=== PATIENT | female | born 1975 | race Caucasian/White ===

== ENCOUNTER 2021-03-03 05:48 | Emergency (ER) | payer MEDICAID, SELFPAY ==
--- NOTE | ~2021-03-03 | CT_ITS ---
EXAMINATION: CT ABDOMEN AND PELVIS WITH CONTRAST CLINICAL INFORMATION: Pain. History of gastric fistula and gastric bypass COMPARISON: Previous CT of the abdomen and pelvis April 2019 TECHNIQUE: Multidetector volumetric images were obtained from the superior aspect of the liver through the pubic symphysis following administration 85 mL of Omnipaque 350 intravenous contrast. Sagittal and coronal reformatted images were obtained on the technologist's workstation. Oral contrast: Yes This CT examination was performed using dose optimization techniques as appropriate, variously including the following: *Automated exposure control *Adjustment of mA and/or kV according to patient size (this includes techniques or standardized protocols for targeted exams where dose is matched to indication/reason for exam; i.e. extremities or head) *Use of iterative reconstruction technique DLP: 934 mGy-cm FINDINGS: LUNG BASES: The visualized lung bases are unremarkable. LIVER, GALLBLADDER, AND BILIARY TREE: The liver is normal in size, shape, and attenuation. No focal hepatic lesion or biliary ductal dilatation is present. The gallbladder has been removed. PANCREAS: Unremarkable. SPLEEN: Unremarkable. ADRENAL GLANDS: Unremarkable. KIDNEYS AND URETERS: The kidneys are normal in size, shape, and attenuation. No hydronephrosis, hydroureter, or calculi seen. No perinephric stranding. BLADDER: Unremarkable. GASTROINTESTINAL TRACT: There are postsurgical changes from gastric bypass. No evidence of fluid collection, extraluminal air or fistula is seen. The small and large bowel are otherwise unremarkable. The appendix is unremarkable. ABDOMINAL WALL: There are multiple ventral hernias containing fat. There is an umbilical hernia containing fat. LYMPH NODES: Normal. VASCULAR: Unremarkable. PELVIC VISCERA: Unremarkable. OSSEOUS STRUCTURES: There are mild degenerative changes of the lower thoracic spine. CT/CT abdomen pelvis w con IMPRESSION: No acute findings. Postsurgical changes following gastric bypass. Umbilical and ventral hernias.
[2021-03-03 06:15] VITALS: BP 167/95; PULSE 84; RESP 20; TEMP 35.7; O2SAT 97; BMI 45.0
--- NOTE | 2021-03-03 08:16 | ECG_ITS ---
Test Reason : ABDOMINAL PAIN Blood Pressure : / mmHG Vent. Rate : 074 BPM Atrial Rate : 074 BPM P-R Int : 154 ms QRS Dur : 076 ms QT Int : 418 ms P-R-T Axes : 061 054 037 degrees QTc Int : 463 ms Normal sinus rhythm Normal ECG When compared with ECG of 18-APR-2019 21:54, QT has lengthened Referred By: Lauren Bay Electronically Signed By:Kevin Ramon
--- NOTE | 2021-03-03 08:34 | ED.ABDPAIN ---
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 Vomiting NBNB x1. +nausea. No diarrhea, urinary symptoms, fevers or chills. MD elicited complaint: abdominal pain Related Data Home Medications Medication Instructions Recorded Confirmed cholecalciferol (vitamin D3) 125 mcg PO DAILY 07/15/20 07/15/20 [Vitamin D3] cyanocobalamin (vitamin B-12) 5,000 mcg SUBLINGUAL DAILY 07/15/20 07/15/20 [Vitamin B-12] fluoxetine [Prozac] 20 mg PO DAILY 07/15/20 07/15/20 sucralfate [Carafate] 10 ml PO BID 07/15/20 07/15/20 Previous Rx's Medication Instructions Recorded omeprazole 40 mg capsule,delayed 40 mg PO DAILY 30 Days #30 cap 09/25/20 release ondansetron 4 mg PO Q6H PRN #10 tab 03/03/21 Allergies Allergy/AdvReac Type Severity Reaction Status Date / Time No Known Allergies Allergy Verified 03/03/21 06:15 [No Known Allergies*] Review of Systems Review of Systems Yes all other systems are reviewed and are negative Constitutional: Reports no additional constitutional complaints, Denies body ache(s), Denies chills, Denies fever(s), Denies headache(s) and Denies weakness Eyes: Reports no additional eye complaints and Denies change in vision Reports system reviewed and no additional complaints, except as documented, Denies dizziness, Denies headache(s), Denies nasal congestion, Denies nasal discharge and Denies neck pain Cardiovascular: Reports no additional cardiovascular complaints, Denies chest pain, Denies leg edema and Denies dyspnea Respiratory: Reports no additional respiratory complaints, Denies cough and Denies dyspnea Gastrointestinal: Reports no additional gastrointestinal complaints, Reports abdominal pain, Denies diarrhea, Reports nausea and Reports vomiting Genitourinary: Reports no additional female genitourinary complaints and Denies urinary incontinence Musculoskeletal: Reports no additional musculoskeletal complaints, Denies back pain, Denies arthralgias, Denies joint swelling, Denies neck pain, Denies numbness and Denies tingling Skin/Breast: Reports system reviewed and no additional complaints, except as docu and Denies rash Reports system reviewed and no additional complaints, except as documented, Denies Abnormal speech present, Denies dizziness, Denies headache(s), Denies numbness, Denies tingling and Denies weakness Physical Exam Vital Signs: Vital Signs: Last Vital Signs Temp 97.6 F 03/03/21 09:13 Pulse 72 03/03/21 09:13 Resp 17 03/03/21 09:13 BP 158/75 H 03/03/21 09:13 Pulse Ox 98 03/03/21 09:13 Body Mass Index 45.0 Const: General: cooperative, healthy appearing, comfortable and no acute distress Orientation/consciousness: patient oriented x3 Limitations: no limitations HENMT: Head: Yes normal to inspection Ears: hearing grossly normal bilaterally General nose exam: Normal external nose present Face and sinus: Yes normal facial exam Mouth: Normal oral and palatal mucosa present Throat: Yes posterior oropharynx normal Eyes: General: appearance normal, both eyes and all related structures Pupils: Equal, round and reactive pupils present Neck: Neck: Yes normal visual inspection Chest: Chest palpation & inspection: normal inspection of the chest Resp: Effort & Inspection: normal respiratory effort Auscultation: clear to auscultation bilaterally Cardio: Rate: regular rate Rhythm: regular rhythm Peripheral pulses: Peripheral pulses 2+ throughout GI: Inspection: Yes normal to inspection Palpation (GI): Soft to palpation and Tenderness to palpation present (GI) (MOD LUQ, left sided abdomen-+guarding) Auscultation: normal bowel sounds Back/Spine/Pelvis: Thoracic/Lumbar Spine: thoracic and lumbar spine normal to inspection Skin: General skin exam: no rashes or lesions noted Neuro: General: patient oriented x3, no focal motor deficits and normal sensation to monofilament Cranial nerves: Yes Equal, round and reactive pupils present Cognition (Neuro): normal cognition Speech: No Abnormal speech present Gait exam (Neuro): Normal gait present Motor exam (neuro): 5/5 motor strength present throughout Extrem: General: Yes normal to inspection, Yes no pedal edema and Yes no calf tenderness Course Course Course Narrative: 45 yo female here with left sided Ap with vomiting since last evening. ON exam mod tenderness in LUQ/left sided abdomen with guarding. Will need labs, UA. Place PIV and give antiemetic/analgesia, d/w with GI. 0950-Labs unremarkble. UA negative. Feeling improved after morphine/zofran. Will d/w with GI 1000-D/w with Dr Sims. Check CT A/P with PO contrast. If negative and patient feeling improved may f/u in office. 1150-CT show no acute finding. Patient feeling improved. Tolerating PO. Reviewed worrisome signs/symptoms with patient and when to return to ED. Comfortable with discharge home. MDM - Abdominal Pain Medical Records Attestation: I reviewed the patient's medical records. Lab Data Attestation: I reviewed the patient's lab results. Result diagrams: 03/03/21 08:36 03/03/21 08:36 Labs: Lab Results 03/03/21 03/03/21 03/03/21 Range/Units 08:36 08:36 08:36 WBC 6.8 (4.8-10.8) X10*3/uL RBC 3.84 L (4.20-5.50) X10*6/uL Hgb 12.8 (12.0-16.0) g/dl Hct 39.0 (37-47) % MCV 101.6 H (80-98) fL MCH 33.3 H (27.0-33.0) pg MCHC 32.8 (31.0-35.0) g/dl RDW 13.3 (11.0-16.0) % Plt Count 190 (160-400) X10*3/uL MPV 10.6 (9.4-12.3) fL Immature Gran % (Auto) 0.6 H (0.0-0.4) % Neut % (Auto) 69.0 (45-73) % Lymph % (Auto) 21.3 (20-40) % [place] % (Auto) 7.8 (2-11) % Eos % (Auto) 0.9 (0-4) % Baso % (Auto) 0.4 (0-2) % Lymph # (Auto) 1.5 (1.2-4.9) X10*3/uL [place] # (Auto) 0.5 (0.1-1.2) X10*3/uL Eos # (Auto) 0.1 (0.0-0.4) X10*3/uL Baso # (Auto) 0.0 (0.0-0.2) X10*3/uL Abs Immat Gran (auto) 0.04 H (0.00-0.03) X10*3/uL Absolute Neuts (auto) 4.7 (2.0-8.3) X10*3/uL Absolute Nucleated RBC 0.000 (0.0-0.012) X10*3/uL Nucleated RBC % (auto) 0.0 (0.0-0.2) /100WBC Sodium 139 (135-145) mmol/L Potassium 4.4 (3.3-5.1) mmol/L Chloride 108 (96-108) mmol/L Carbon Dioxide 23 (22-29) mmol/L Anion Gap 12 (12-20) BUN 17 H (9-16) mg/dL Creatinine 0.70 (0.5-1.4) mg/dL Estim Creat Clear Calc 122.1 Estimated GFR > 60 Random Glucose 98 (60-115) mg/dL Calcium 8.9 (8.4-10.2) mg/dL Magnesium 2.0 (1.6-2.6) mg/dL Total Bilirubin 0.5 (0.0-1.0) mg/dL Direct Bilirubin 0.2 (0.0-0.5) mg/dL AST 24 (5-31) U/L ALT 15 (0-31) U/L Alkaline Phosphatase 86 (39-117) U/L Troponin I High Sens < 3.5 (<3.5-17.0) ng/L Total Protein 7.3 (6.5-8.0) g/dL Albumin 3.8 (3.5-5.0) g/dL Lipase 47 (8-78) U/L Urine Color Urine Appearance Urine pH (5.0-8.0) Ur Specific [place] (1.005-1.025) Urine Protein (NEG-TRACE) MG/DL Urine Glucose (UA) (NEG) MG/DL Urine Ketones (NEG) MG/DL Urine Blood (NEG) Urine Nitrite (NEG) Ur Leukocyte Esterase (NEG) Urine Test (NEGATIVE) 03/03/21 03/03/21 Range/Units 08:36 08:36 WBC (4.8-10.8) X10*3/uL RBC (4.20-5.50) X10*6/uL Hgb (12.0-16.0) g/dl Hct (37-47) % MCV (80-98) fL MCH (27.0-33.0) pg MCHC (31.0-35.0) g/dl RDW (11.0-16.0) % Plt Count (160-400) X10*3/uL MPV (9.4-12.3) fL Immature Gran % (Auto) (0.0-0.4) % Neut % (Auto) (45-73) % Lymph % (Auto) (20-40) % [place] % (Auto) (2-11) % Eos % (Auto) (0-4) % Baso % (Auto) (0-2) % Lymph # (Auto) (1.2-4.9) X10*3/uL [place] # (Auto) (0.1-1.2) X10*3/uL Eos # (Auto) (0.0-0.4) X10*3/uL Baso # (Auto) (0.0-0.2) X10*3/uL Abs Immat Gran (auto) (0.00-0.03) X10*3/uL Absolute Neuts (auto) (2.0-8.3) X10*3/uL Absolute Nucleated RBC (0.0-0.012) X10*3/uL Nucleated RBC % (auto) (0.0-0.2) /100WBC Sodium (135-145) mmol/L Potassium (3.3-5.1) mmol/L Chloride (96-108) mmol/L Carbon Dioxide (22-29) mmol/L Anion Gap (12-20) BUN (9-16) mg/dL Creatinine (0.5-1.4) mg/dL Estim Creat Clear Calc Estimated GFR Random Glucose (60-115) mg/dL Calcium (8.4-10.2) mg/dL Magnesium (1.6-2.6) mg/dL Total Bilirubin (0.0-1.0) mg/dL Direct Bilirubin (0.0-0.5) mg/dL AST (5-31) U/L ALT (0-31) U/L Alkaline Phosphatase (39-117) U/L Troponin I High Sens (<3.5-17.0) ng/L Total Protein (6.5-8.0) g/dL Albumin (3.5-5.0) g/dL Lipase (8-78) U/L Urine Color YELLOW Urine Appearance CLEAR Urine pH 6.0 (5.0-8.0) Ur Specific Soldier 1.025 (1.005-1.025) Urine Protein NEG (NEG-TRACE) MG/DL Urine Glucose (UA) NEG (NEG) MG/DL Urine Ketones NEG (NEG) MG/DL Urine Blood NEG (NEG) Urine Nitrite NEG (NEG) Ur Leukocyte Esterase NEG (NEG) Urine Test NEGATIVE (NEGATIVE) Imaging Data CT scan - abdomen: Attestation: I personally reviewed and interpreted this imaging study as follows: Radiologist's impression: EXAMINATION: CT ABDOMEN AND PELVIS WITH CONTRAST CLINICAL INFORMATION: Pain. History of gastric fistula and gastric bypass COMPARISON: Previous CT of the abdomen and pelvis April 2019 TECHNIQUE: Multidetector volumetric images were obtained from the superior aspect of the liver through the pubic symphysis following administration 85 mL of Omnipaque 350 intravenous contrast. Sagittal and coronal reformatted images were obtained on the technologist's workstation. Oral contrast: Yes This CT examination was performed using dose optimization techniques as appropriate, variously including the following: *Automated exposure control *Adjustment of mA and/or kV according to patient size (this includes techniques or standardized protocols for targeted exams where dose is matched to indication/reason for exam; i.e. extremities or head) *Use of iterative reconstruction technique DLP: 934 mGy-cm FINDINGS: LUNG BASES: The visualized lung bases are unremarkable. LIVER, GALLBLADDER, AND BILIARY TREE: The liver is normal in size, shape, and attenuation. No focal hepatic lesion or biliary ductal dilatation is present. The gallbladder has been removed. PANCREAS: Unremarkable. SPLEEN: Unremarkable. ADRENAL GLANDS: Unremarkable. KIDNEYS AND URETERS: The kidneys are normal in size, shape, and attenuation. No hydronephrosis, hydroureter, or calculi seen. No perinephric stranding. BLADDER: Unremarkable. GASTROINTESTINAL TRACT: There are postsurgical changes from gastric bypass. No evidence of fluid collection, extraluminal air or fistula is seen. The small and large bowel are otherwise unremarkable. The appendix is unremarkable. ABDOMINAL WALL: There are multiple ventral hernias containing fat. There is an umbilical hernia containing fat. LYMPH NODES: Normal. VASCULAR: Unremarkable. PELVIC VISCERA: Unremarkable. OSSEOUS STRUCTURES: There are mild degenerative changes of the lower thoracic spine. CT/CT abdomen pelvis w con IMPRESSION: No acute findings. Postsurgical changes following gastric bypass. Umbilical and ventral hernias. ECG Data Attestation: I personally reviewed and interpreted this ECG as follows: ECG interpretation date: 03/03/21 ECG interpretation time: 09:10 Interpretation: NSR, normal pr, normal qrs, normal qt Discharge Plan Discharge Clinical Impression: Abdominal pain Patient Disposition: Home, Self-Care Instructions: Abdominal Pain (ED) Additional Instructions: Start with clear liquids then advance diet as tolerated Follow-up with Dr Sims Prescriptions: New ondansetron 4 mg tablet,disintegrating 4 mg PO Q6H PRN (Reason: nausea and vomiting) Qty: 10 RF: 0 No Action omeprazole 40 mg capsule,delayed release(DR/EC) 40 mg PO DAILY 30 Days Qty: 30 RF: 3 sucralfate [Carafate] 100 mg/mL Suspension 10 ml PO BID RF: 0 fluoxetine [Prozac] 20 mg Capsule 20 mg PO DAILY RF: 0 cholecalciferol (vitamin D3) [Vitamin D3] 125 mcg (5,000 unit) Tablet 125 mcg PO DAILY RF: 0 cyanocobalamin (vitamin B-12) [Vitamin B-12] 5,000 mcg Tablet, Sublingual 5,000 mcg SUBLINGUAL DAILY RF: 0 Referrals: Amber Sims MD [Physician] - 2 days Stand Alone Forms: Work/School Release Interventions: ED Discharge Assessment Last Done: 03/03/21 11:41 Discharge Date/Time: 03/03/21 11:42 [facility] Past Medical History Attestation statement: The following information was validated with the patient. Source: old records reviewed and nursing notes reviewed Medical History Acquired gastric fistula Anxiety Cervical radiculopathy Depression GERD (gastroesophageal reflux disease) Hx of esophagitis Vitamin D deficiency Surgical History History of esophagogastroduodenoscopy (EGD) Hx of section Hx of cholecystectomy Hx of gastric bypass Hx of tubal ligation Social History Social History Advance Directives: No Patient : No
[2021-03-03] MEDS: 0.9 % Sodium Chloride 1,000 ML 999 ML IV (08:42)
[2021-03-03] MEDS: Morphine Sulfate 4 MG/ML CARTRIDGE IVPUSH (08:42)
[2021-03-03] MEDS: ondansetron HCL 4 MG/2 ML VIAL IVPUSH (08:42)
[2021-03-03 08:43] LABS: MANUAL DIFF FLAG NO
[2021-03-03 08:44] LABS: Glucose Urine UA NEG (NEG); Leukocyte Esterase Urine NEG (NEG); Nitrite Urine NEG (NEG); Specific Gravity - Urine 1.025 (1.005-1.025); Urine Blood NEG (NEG); Urine Ketones NEG (NEG); Urine Protein NEG (NEG-TRACE)
[2021-03-03 08:45] LABS: Appearance Urine CLEAR; Basophils Percent Auto 0.4 % (0-2); Color Urine YELLOW; Eosinophils Absolute Auto 0.1 X10*3/uL (0.0-0.4); Eosinophils Percent Auto 0.9 % (0-4); Hemoglobin 12.8 g/dl (12.0-16.0); Imm Gran Abs Auto 0.04 X10*3/uL (0.00-0.03); Imm Gran Pct Auto 0.6 % (0.0-0.4); Lymphocytes Absolute Auto 1.5 X10*3/uL (1.2-4.9); Lymphocytes Percent Auto 21.3 % (20-40); Mean Corpuscular HGB Conc 32.8 g/dl (31.0-35.0); Mean Corpuscular Hemoglobin 33.3 pg (27.0-33.0); Mean Corpuscular Volume 101.6 fL (80-98); Mean Platelet Volume 10.6 fL (9.4-12.3); Monocytes Absolute Auto 0.5 X10*3/uL (0.1-1.2); Monocytes Percent Auto 7.8 % (2-11); Neutrophils Absolute Auto 4.7 X10*3/uL (2.0-8.3); Platelet Count 190 X10*3/uL (160-400); Red Blood Count 3.84 X10*6/uL (4.20-5.50); Red Cell Distribution Width 13.3 % (11.0-16.0); White Blood Count 6.8 X10*3/uL (4.8-10.8)
[2021-03-03 08:46] LABS: UPreg QC Valid YES; Urine Pregnancy NEGATIVE (NEGATIVE)
[2021-03-03 09:04] LABS: Alanine Aminotransferase 15 U/L (0-31); Albumin Level 3.8 g/dL (3.5-5.0); Alkaline Phosphatase 86 U/L (39-117); Anion Gap 12 (12-20); Aspartate Amino Transferase 24 U/L (5-31); Bilirubin Direct 0.2 mg/dL (0.0-0.5); Bilirubin Total 0.5 mg/dL (0.0-1.0); Blood Urea Nitrogen 17 mg/dL (9-16); Calcium 8.9 mg/dL (8.4-10.2); Carbon Dioxide 23 mmol/L (22-29); Chloride 108 mmol/L (96-108); Creatinine Clr Calc Pharmacy 122.1; Estimated Glomerular Filt Rate > 60; Glucose Random 98 mg/dL (60-115); Potassium 4.4 mmol/L (3.3-5.1); Sodium 139 mmol/L (135-145); Total Protein 7.3 g/dL (6.5-8.0)
[2021-03-03 09:12] LABS: Troponin-I High Sensitivity < 3.5 ng/L (<3.5-17.0)
[2021-03-03 09:13] VITALS: BP 158/75; PULSE 72; RESP 17; TEMP 36.4; O2SAT 98
[2021-03-03 10:19] LABS: Lipase 47 U/L (8-78)
[2021-03-03] MEDS: iohexoL 350 MG/ML 100 ML INFUS..BTL 85 ML IV (10:30)
== END 2021-03-03 11:42 | disposition home or self-care (01) ==
PROVIDERS: Nurse Practitioner Family; Emergency Provider Emergency Medicine Emergency Medical Services
DX: R10.9 Unspecified abdominal pain (principal); R11.10 Vomiting, unspecified; Z98.84 Bariatric surgery status
CPT/HCPCS: 36415; 74177; 80048; 80076; 81003; 81025; 83690; 83735; 84484; 85025; 93005; 96361; 96374; 96375; 99284; J2270; J2405; Q9967

== ENCOUNTER 2021-11-28 11:00 | Emergency (ER) | payer MEDICAID, SELFPAY ==
--- NOTE | ~2021-11-28 | CT_ITS ---
EXAMINATION: CT ABDOMEN AND PELVIS WITH CONTRAST CLINICAL INFORMATION: Abdominal pain COMPARISON: CT abdomen pelvis on 04/02/2021 TECHNIQUE: Multidetector volumetric images were obtained from the superior aspect of the liver through the pubic symphysis following administration 85 mL of Omnipaque 350 intravenous contrast. Sagittal and coronal reformatted images were obtained on the technologist's workstation. Oral contrast: No This CT examination was performed using dose optimization techniques as appropriate, variously including the following: *Automated exposure control *Adjustment of mA and/or kV according to patient size (this includes techniques or standardized protocols for targeted exams where dose is matched to indication/reason for exam; i.e. extremities or head) *Use of iterative reconstruction technique DLP: 970 mGy-cm FINDINGS: LUNG BASES: The visualized lung bases are unremarkable. LIVER, GALLBLADDER, AND BILIARY TREE: The liver is normal in size, shape, and attenuation. No focal hepatic lesion or biliary ductal dilatation is present. Prior cholecystectomy. PANCREAS: Unremarkable. SPLEEN: Unremarkable. ADRENAL GLANDS: Unremarkable. KIDNEYS AND URETERS: The kidneys are normal in size, shape, and attenuation. No hydronephrosis, hydroureter, or calculi seen. No perinephric stranding. BLADDER: Unremarkable. GASTROINTESTINAL TRACT: Prior gastric bypass. Prominent GJ limb with abnormal curvature and distention in the midabdomen. Distal small bowel loops are normal in caliber. The colon is normal in caliber. No bowel wall thickening. ABDOMINAL WALL: No significant hernia is appreciated. LYMPH NODES: Normal. VASCULAR: Unremarkable. PELVIC VISCERA: Unremarkable. OSSEOUS STRUCTURES: Unremarkable. CT/CT abdomen pelvis w con IMPRESSION: Prominent GJ limb with abnormal curvature and distention in the midabdomen may be due to internal hernia. Fleischner guidelines were followed.
--- NOTE | ~2021-11-28 | CT_ITS ---
EXAMINATION: CT ABDOMEN AND PELVIS WITHOUT CONTRAST CLINICAL INFORMATION: Left lumbar and left upper abdominal discomfort. COMPARISON: CT scan abdomen pelvis 11/28/2021, 1:23 PM TECHNIQUE: Multidetector volumetric imaging was performed from the superior aspect of the liver through the pubic symphysis. Sagittal and coronal reformatted images were obtained on the technologist's workstation. This CT examination was performed using dose optimization techniques as appropriate, variously including the following: *Automated exposure control *Adjustment of mA and/or kV according to patient size (this includes techniques or standardized protocols for targeted exams where dose is matched to indication/reason for exam; i.e. extremities or head) *Use of iterative reconstruction technique DLP: 729 mGy-cm FINDINGS: LUNG BASES: The visualized lung bases are unremarkable. LIVER, GALLBLADDER, AND BILIARY TREE: The liver is normal in size, shape, and attenuation. No focal hepatic lesion or biliary ductal dilatation is present. The gallbladder is unremarkable with no evidence of radiopaque gallstones, gallbladder wall thickening, or obvious pericholecystic inflammatory changes. PANCREAS: Unremarkable. SPLEEN: Unremarkable. ADRENAL GLANDS: Unremarkable. KIDNEYS AND URETERS: Contrast within the collecting system of the kidneys and the bladder related to the previous IV contrast administered for the prior CAT scan from today. The kidneys are normal in size, shape, and attenuation. No hydronephrosis, hydroureter, or calculi seen. No perinephric stranding. BLADDER: Unremarkable. GASTROINTESTINAL TRACT: Status post gastric bypass. The previously seen dilated GJ limb with food debris and distention seen on CAT scan abdomen 11/28/2021 has resolved. Oral contrast now fills the afferent and a few loops which are nondilated. Contrast images the distal small bowel loops. Approximately 180 degree mesenteric twist at the upper central mesentery unchanged since prior study related to postoperative changes of the mesentery. No inflammation the mesentery. No free air or free fluid. ABDOMINAL WALL: No significant hernia is appreciated. LYMPH NODES: Normal. VASCULAR: Unremarkable. PELVIC VISCERA: Unremarkable. OSSEOUS STRUCTURES: Multilevel degenerative spondylosis of the spine. CT/CT abdomen pelvis wo con IMPRESSION: Status post gastric bypass. No bowel obstruction. No acute change of bowel. The previously seen distended GJ loop with food debris seen on the prior CAT scan of 11/28/2021 has resolved. Fleischner guidelines were followed.
[2021-11-28 11:06] VITALS: BP 153/93; PULSE 85; RESP 20; TEMP 35.9; O2SAT 100; BMI 43.9
--- NOTE | 2021-11-28 11:45 | ED.GENADULT ---
HPI - General Adult General Chief complaint: Abdominal Pain Stated complaint: abd pain Time Seen by Provider: 11/28/21 11:45 Source: patient Mode of arrival: ambulatory Limitations: no limitations History of Present Illness HPI narrative: 46-year-old female with past medical history of cervical radiculopathy, GERD, history of gastric bypass, vitamin-D deficiency, anxiety, obesity is here today for complaining of left abdominal discomfort. Patient denies any nausea or vomiting. Denies any diarrhea. Reports that she has been moving her bowels well. Denies any dyspepsia, dysphagia or odynophagia. Denies any melena, hematochezia, unintentional weight loss or ribbon like stools. Patient reports that in May of 2020 she had gastric fistula and ulceration anastomosis done by Dr. Sims. Report from the procedure: Stomach Pouch: Gastro gastric fistula noted measuring about 13-15 mm in diameter, APC with circumferential probe applied to the rim of the fistula. After this the OVESCO clip was applied to the scope after it was withdrawn. The scope was reintroduced and using the twin grasper the edges of the fistula were grabbed and the tissue was suctioned in. The OVESCO clip was then applied and appeared to be successful. NO visible fistulous tract could be seen. Patient is on omeprazole for GERD. Symptoms are suppressed for the most part. Patient reports that she was supposed to follow-up with him in the office and never did. Recommendation was made for patient to have of her endoscopy to recheck her anastomosis. Patient states that she missed appointment. Patient reports that she had similar pain before, however she states that the pain is usually in the epigastric area. Patient denies diarrhea. Reports that she has moved her bowels without any issues. Last bowel movement was this morning. Patient denies any flank pain, no issues with urinations. Denies any chest pain, palpitations. Denies any other GI concerning symptoms. Onset (ago): day(s) Location: abdomen (Left lumbar) Radiation: non-radiation Severity: moderate Severity scale (1-10): 9 Quality: sharp Pain Consistency: intermittent Relieving factors: none Exacerbating factors: movement Associated symptoms: denies other symptoms Treatments prior to arrival: none Related Data Home Medications Medication Instructions Recorded Confirmed cholecalciferol (vitamin D3) 125 125 mcg PO DAILY 11/03/20 11/03/20 mcg (5,000 unit) tablet (Vitamin D3) cyanocobalamin (vitamin B-12) 5,000 mcg SUBLINGUAL DAILY 07/15/20 07/15/20 5,000 mcg sublingual tablet (Vitamin B-12) fluoxetine 20 mg capsule (Prozac) 20 mg PO DAILY 07/15/20 07/15/20 sucralfate 100 mg/mL oral 10 ml PO BID 07/15/20 07/15/20 suspension (Carafate) Previous Rx's Medication Instructions Recorded ondansetron 4 mg disintegrating 4 mg PO Q6H PRN #10 tab 03/03/21 tablet omeprazole 40 mg capsule,delayed 40 mg PO DAILY 30 Days #30 cap 05/19/21 release pantoprazole 40 mg tablet,delayed 40 mg PO BID #60 tab 11/28/21 release sennosides 8.6 mg tablet (Senokot) 17.2 mg PO BEDTIME #30 tab 11/28/21 sucralfate 1 gram tablet 1 g PO BEDTIME #30 tab 11/28/21 Allergies Allergy/AdvReac Type Severity Reaction Status Date / Time No Known Allergies Allergy Verified 03/03/21 06:15 [No Known Allergies*] Review of Systems Review of Systems: Constitutional : No Weight loss, No Fever, No Chills, No Night Sweats, No Fatigue, No Malaise ENT/Mouth : No Hearing loss, No Ear Pain, No Nasal Congestion, No Sinus Pain, No Hoarseness, No sore throat, No Rhinorrhea, No Swallowing Difficulty Eyes: No Eye Pain, No Swelling, No Redness, No Foreign Body, No Discharge, No Vision Changes Cardiovascular : No Chest Pain, No SOB, No Dyspnea on Exertion, No Orthopnea, No Edema, No Palpitations Respiratory : No Cough, No Sputum, No Wheezing, No Smoke Exposure, No Dyspnea Gastrointestinal : No Nausea, No Vomiting, No Diarrhea, No Constipation, L lumbar abdominal Pain, No Hematochezia, No Melena Genitourinary : no irregular bleeding, No Dysuria, No Urinary Frequency, No Hematuria, No Urinary Incontinence, No Urgency, No Flank Pain, No Urinary Flow Changes, No Hesitancy Musculoskeletal : No joint pain, No Myalgias, No Joint Swelling Skin : No Skin Lesions, No rash Neuro : No Weakness, No Numbness, No Paresthesias, No Loss of Consciousness, No Dizziness, No Headache Yes all other systems are reviewed and are negative [facility] Past Medical History Medical History Acquired gastric fistula Anxiety Cervical radiculopathy Depression GERD (gastroesophageal reflux disease) Hx of esophagitis Vitamin D deficiency Surgical History History of esophagogastroduodenoscopy (EGD) Hx of section Hx of cholecystectomy Hx of gastric bypass Hx of tubal ligation Social History Social History Alcohol intake: current Alcohol intake frequency: a few times a week Patient Tobacco Use Status: Current everyday Tobacco user Use of substances other than those prescribed or required for medical reasons: No Advance Directives: No Advance Directives Information Provided: No Patient : No Physical Exam ED Vital Signs: Vital Signs - 24 hr 11/28/21 11:06 11/28/21 12:28 11/28/21 15:52 Temperature 96.7 F L 98.2 F Pulse Rate 85 78 75 Respiratory Rate 20 16 Blood Pressure 153/93 H 143/78 H Pulse Oximetry 100 99 99 BMI result Body Mass Index 43.9 Const General: cooperative, alert and awake Nutritional Appearance: obese Orientation/consciousness: patient oriented x3 Limitations: no limitations HENMT Head: Yes normal to inspection, Yes normocephalic and Yes atraumatic Neck Neck: Yes normal visual inspection, Yes full ROM, Yes trachea midline and Yes supple Thyroid: Thyroid normal Resp Effort & Inspection: normal respiratory effort and able to speak in complete sentences Auscultation: clear to auscultation bilaterally Cardio Rate: regular rate Rhythm: regular rhythm Heart sounds: S1 normal heart sound present and S2 normal heart sound present GI Inspection: Yes normal to inspection, Yes distended and Yes obesity Palpation (GI): Soft to palpation, Tenderness to palpation present (GI) (Left lumbar) and Guarding due to palpation present (GI) Percussion: Yes normal to percussion Auscultation: normal bowel sounds Rectal Exam - Female: deferred General: Yes no CVA tenderness Back/Spine/Pelvis Back: no CVA tenderness Cervical Spine: normal cervical lordosis Thoracic/Lumbar Spine: thoracic and lumbar spine normal to inspection and No paraspinal muscle tenderness Skin General skin exam: elasticity normal and turgor normal Neuro General: patient oriented x3 Extrem General: Yes normal to inspection and Yes full ROM Psych Appearance: grossly normal Mental Status: mental status grossly normal Affect: normal affect Attitude: cooperative Thought process: Normal thought process present Thought content: Normal thought content present Insight: Good insight present (Psych) Course Course Course Narrative: 46-year-old female with past medical history of gastric bypass over 20 years ago. Fissure repair in May 2020, GERD, anxiety, depression, vitamin-D deficiency is here today for left abdominal pain. Patient reports that she is moving her bowels without issues. Last BM soft this morning. Patient denies any nausea, vomiting. Denies any dyspepsia, dysphagia or odynophagia. Patient denies any melena, hematochezia, unintentional weight loss like stools. Patient reports that the pain is in her left side of the abdomen. Area tender to touch. As mentioned above patient has had gastric fissure repair by Dr. Sims May and was supposed to be following up with upper endoscopy. Patient has not follow-up with Dr. Sims GI. Left lumbar abdominal region tender to touch. Will medicate patient for pain. Will order CT scan with IV contrast, CBC, CMP and lipase. Reevaluation(s) Reevaluation #1: Patient continues with abdominal discomfort. Ordered dilaudid [address] scan results. Reevaluation #2: CT scan shows prior gastric bypass, prominent GJ Amanda with abnormal curvature and distension and the mid abdomen. Distal small bowel loops are normal in caliber. Colon is normal in caliber no bowel wall thickening. Call placed to bariatric surgery for questioning. Spoke with Marti Kaur who suggested calling [facility], with question if gastric remnant is enlarged. Reevaluation #3: CT scan of abdomen shows resolved dilation of GJ limb. Patient is feeling better. Spoke to Marti Kaur from bariatric services who recommended patient following up with them as an outpatient. Patient will be discharged home on liquid diet and 3 protein shakes a day. Patient will return to ED if she will have worsening symptoms or any additional concerning symptoms. Medical Decision Making Lab Data Result diagrams: 11/28/21 12:21 11/28/21 12:22 Labs: Lab Results 11/28/21 11/28/21 11/28/21 Range/Units 12:21 12:22 12:26 WBC 6.4 (4.8-10.8) X10*3/uL RBC 4.07 L (4.20-5.50) X10*6/uL Hgb 13.5 (12.0-16.0) g/dl Hct 40.9 (37.0-47.0) % MCV 100.5 H (80.0-98.0) fL MCH 33.2 H (27.0-33.0) pg MCHC 33.0 (31.0-35.0) g/dl RDW 13.1 (11.0-16.0) % Plt Count 273 (160-400) X10*3/uL MPV 10.0 (9.4-12.3) fL Immature Gran % (Auto) 0.3 (0.0-0.4) % Neut % (Auto) 69.7 (45-73) % Lymph % (Auto) 21.7 (20-40) % [place] % (Auto) 7.5 (2-11) % Eos % (Auto) 0.5 (0-4) % Baso % (Auto) 0.3 (0-2) % Lymph # (Auto) 1.4 (1.2-4.9) X10*3/uL [place] # (Auto) 0.5 (0.1-1.2) X10*3/uL Eos # (Auto) 0.0 (0.0-0.4) X10*3/uL Baso # (Auto) 0.0 (0.0-0.2) X10*3/uL Abs Immat Gran (auto) 0.02 (0.00-0.03) X10*3/uL Absolute Neuts (auto) 4.5 (2.0-8.3) x10*3/uL Absolute Nucleated RBC 0.000 (0.0-0.012) X10*3/uL Nucleated RBC % (auto) 0.0 (0.0-0.2) /100WBC Sodium 135 (135-145) mmol/L Potassium 4.5 (3.3-5.1) mmol/L Chloride 104 (96-108) mmol/L Carbon Dioxide 23 (22-29) mmol/L Anion Gap 13 (12-20) BUN 13 (9-16) mg/dL Creatinine 0.67 (0.5-1.4) mg/dL Estim Creat Clear Calc 124.4 Estimated GFR > 60 Random Glucose 95 (60-115) mg/dL Lactic Acid (0.5-2.0) mmol/L Calcium 9.4 (8.4-10.2) mg/dL Total Bilirubin 1.0 (0.0-1.0) mg/dL AST 23 (5-31) U/L ALT 15 (0-31) U/L Alkaline Phosphatase 98 (39-117) U/L Total Protein 7.3 (6.5-8.0) g/dL Albumin 3.7 (3.5-5.0) g/dL Lipase 38 (8-78) U/L Urine Color YELLOW Urine Appearance CLEAR Urine pH 6.5 (5.0-8.0) Ur Specific [place] 1.015 (1.005-1.025) Urine Protein NEG (NEG-TRACE) MG/DL Urine Glucose (UA) NEG (NEG) MG/DL Urine Ketones NEG (NEG) MG/DL Urine Blood TRACE (NEG) Urine Nitrite NEG (NEG) Ur Leukocyte Esterase NEG (NEG) Urine RBC 0-2 (0) /HPF Urine WBC 0-2 (0-4) /HPF Ur Squamous Epith Cells TRACE /LPF Urine Bacteria NONE /LPF Urine Mucus TRACE /LPF Urine Test (NEGATIVE) 11/28/21 11/28/21 Range/Units 12:26 16:33 WBC (4.8-10.8) X10*3/uL RBC (4.20-5.50) X10*6/uL Hgb (12.0-16.0) g/dl Hct (37.0-47.0) % MCV (80.0-98.0) fL MCH (27.0-33.0) pg MCHC (31.0-35.0) g/dl RDW (11.0-16.0) % Plt Count (160-400) X10*3/uL MPV (9.4-12.3) fL Immature Gran % (Auto) (0.0-0.4) % Neut % (Auto) (45-73) % Lymph % (Auto) (20-40) % [place] % (Auto) (2-11) % Eos % (Auto) (0-4) % Baso % (Auto) (0-2) % Lymph # (Auto) (1.2-4.9) X10*3/uL [place] # (Auto) (0.1-1.2) X10*3/uL Eos # (Auto) (0.0-0.4) X10*3/uL Baso # (Auto) (0.0-0.2) X10*3/uL Abs Immat Gran (auto) (0.00-0.03) X10*3/uL Absolute Neuts (auto) (2.0-8.3) x10*3/uL Absolute Nucleated RBC (0.0-0.012) X10*3/uL Nucleated RBC % (auto) (0.0-0.2) /100WBC Sodium (135-145) mmol/L Potassium (3.3-5.1) mmol/L Chloride (96-108) mmol/L Carbon Dioxide (22-29) mmol/L Anion Gap (12-20) BUN (9-16) mg/dL Creatinine (0.5-1.4) mg/dL Estim Creat Clear Calc Estimated GFR Random Glucose (60-115) mg/dL Lactic Acid 0.7 (0.5-2.0) mmol/L Calcium (8.4-10.2) mg/dL Total Bilirubin (0.0-1.0) mg/dL AST (5-31) U/L ALT (0-31) U/L Alkaline Phosphatase (39-117) U/L Total Protein (6.5-8.0) g/dL Albumin (3.5-5.0) g/dL Lipase (8-78) U/L Urine Color Urine Appearance Urine pH (5.0-8.0) Ur Specific [place] (1.005-1.025) Urine Protein (NEG-TRACE) MG/DL Urine Glucose (UA) (NEG) MG/DL Urine Ketones (NEG) MG/DL Urine Blood (NEG) Urine Nitrite (NEG) Ur Leukocyte Esterase (NEG) Urine RBC (0) /HPF Urine WBC (0-4) /HPF Ur Squamous Epith Cells /LPF Urine Bacteria /LPF Urine Mucus /LPF Urine Test NEGATIVE (NEGATIVE) Imaging Data CT scan - abdomen: Attestation: I personally reviewed and interpreted this imaging study as follows: Radiologist's impression: FINDINGS: LUNG BASES: The visualized lung bases are unremarkable.? LIVER, GALLBLADDER, AND BILIARY TREE: The liver is normal in size, shape, and attenuation. No focal hepatic lesion or biliary ductal dilatation is present. Prior cholecystectomy.? PANCREAS: Unremarkable.? SPLEEN: Unremarkable.? ADRENAL GLANDS: Unremarkable.? KIDNEYS AND URETERS: The kidneys are normal in size, shape, and attenuation. No hydronephrosis, hydroureter, or calculi seen. No perinephric stranding. ? BLADDER: Unremarkable.? GASTROINTESTINAL TRACT: Prior gastric bypass. Prominent GJ limb with abnormal curvature and distention in the midabdomen. Distal small bowel loops are normal in caliber. The colon is normal in caliber. No bowel wall thickening. ABDOMINAL WALL: No significant hernia is appreciated.? LYMPH NODES: Normal. VASCULAR: Unremarkable. PELVIC VISCERA: Unremarkable.? OSSEOUS STRUCTURES: Unremarkable.? CT of abdomen with oral contrast: Attestation: I personally reviewed and interpreted this imaging study as follows: Radiologist's impression: GASTROINTESTINAL TRACT: Status post gastric bypass. The previously seen dilated GJ limb with food debris and distention seen on CAT scan abdomen 11/28/2021 has resolved. Oral contrast now fills the afferent and a few loops which are nondilated. Contrast images the distal small bowel loops. Approximately 180 degree mesenteric twist at the upper central mesentery unchanged since prior study related to postoperative changes of the mesentery. No inflammation the mesentery. No free air or free fluid. Discharge Plan Discharge Clinical Impression: Abdominal pain, Constipation Patient Disposition: Home, Self-Care Instructions: Irritable Bowel Syndrome (ED), Abdominal Pain (ED) Additional Instructions: Your seen in the emergency department for left sided abdominal pain. Your CT scan was negative for any abnormalities, however you need to follow-up with bariatric services at [facility]. Please call [phone] on Tuesday to make an appointment. Please also follow-up with GI department for possible upper endoscopy. Please make sure that you follow strict diet clear liquids with 3 protein shakes a day. You may return to emergency department if his symptoms will get worse or if you experience any additional concerning symptoms. You will be given script for pantoprazole 40 mg twice a day half an hour before breakfast and half an hour before dinner as well as sucralfate at bedtime. Please stop taking omeprazole Prescriptions: New pantoprazole 40 mg tablet,delayed release (DR/EC) 40 mg PO BID Qty: 60 0RF Rx Instructions: Take 1 tablet half an hour before breakfast sucralfate 1 gram tablet 1 g PO BEDTIME Qty: 30 0RF sennosides [Senokot] 8.6 mg tablet 17.2 mg PO BEDTIME Qty: 30 0RF No Action omeprazole 40 mg capsule,delayed release(DR/EC) 40 mg PO DAILY 30 Days Qty: 30 0RF sucralfate [Carafate] 100 mg/mL Suspension 10 ml PO BID 0RF fluoxetine [Prozac] 20 mg Capsule 20 mg PO DAILY 0RF cholecalciferol (vitamin D3) [Vitamin D3] 125 mcg (5,000 unit) Tablet 125 mcg PO DAILY 0RF cyanocobalamin (vitamin B-12) [Vitamin B-12] 5,000 mcg Tablet, Sublingual 5,000 mcg SUBLINGUAL DAILY 0RF ondansetron 4 mg tablet,disintegrating 4 mg PO Q6H PRN (Reason: nausea and vomiting) Qty: 10 0RF Referrals: Marti Kaur PA-C [Physician [employer]] - 2 days (ED follow-up, left upper and lumbar abdominal pain) Amber Sims MD [Physician] - 2 days (Please schedule upper endoscopy and follow-up with your GI specialist) Interventions: ED Discharge Assessment Last Done: 11/28/21 18:34 Discharge Date/Time: 11/28/21 18:34
[2021-11-28] MEDS: 0.9 % Sodium Chloride 1,000 ML 999 ML IV (12:24)
[2021-11-28] MEDS: Morphine Sulfate 4 MG/ML CARTRIDGE IVPUSH (12:24)
[2021-11-28] MEDS: Ondansetron ODT 4 MG TAB.RAPDIS SUBLINGUAL (12:24)
[2021-11-28 12:25] LABS: MANUAL DIFF FLAG NO
[2021-11-28 12:28] VITALS: PULSE 78; O2SAT 99
[2021-11-28 12:28] LABS: Basophils Percent Auto 0.3 % (0-2); Eosinophils Percent Auto 0.5 % (0-4); Hematocrit 40.9 % (37.0-47.0); Hemoglobin 13.5 g/dl (12.0-16.0); Imm Gran Abs Auto 0.02 X10*3/uL (0.00-0.03); Imm Gran Pct Auto 0.3 % (0.0-0.4); Lymphocytes Absolute Auto 1.4 X10*3/uL (1.2-4.9); Lymphocytes Percent Auto 21.7 % (20-40); Mean Corpuscular Hemoglobin 33.2 pg (27.0-33.0); Mean Corpuscular Volume 100.5 fL (80.0-98.0); Monocytes Absolute Auto 0.5 X10*3/uL (0.1-1.2); Monocytes Percent Auto 7.5 % (2-11); Neutrophils Absolute Auto 4.5 x10*3/uL (2.0-8.3); Neutrophils Percent Auto 69.7 % (45-73); Platelet Count 273 X10*3/uL (160-400); Red Blood Count 4.07 X10*6/uL (4.20-5.50); Red Cell Distribution Width 13.1 % (11.0-16.0); White Blood Count 6.4 X10*3/uL (4.8-10.8)
[2021-11-28 12:35] LABS: Appearance Urine CLEAR; Color Urine YELLOW; Glucose Urine UA NEG (NEG); Leukocyte Esterase Urine NEG (NEG); Nitrite Urine NEG (NEG); PH 6.5 (5.0-8.0); Specific Gravity - Urine 1.015 (1.005-1.025); UACC Culture Trigger NO; Urine Blood TRACE (NEG); Urine Ketones NEG (NEG); Urine Protein NEG (NEG-TRACE)
[2021-11-28 12:37] LABS: UPreg QC Valid YES; Urine Pregnancy NEGATIVE (NEGATIVE)
[2021-11-28 12:40] LABS: Alanine Aminotransferase 15 U/L (0-31); Albumin Level 3.7 g/dL (3.5-5.0); Alkaline Phosphatase 98 U/L (39-117); Anion Gap 13 (12-20); Aspartate Amino Transferase 23 U/L (5-31); Blood Urea Nitrogen 13 mg/dL (9-16); Calcium 9.4 mg/dL (8.4-10.2); Carbon Dioxide 23 mmol/L (22-29); Chloride 104 mmol/L (96-108); Creatinine Clr Calc Pharmacy 124.4; Estimated Glomerular Filt Rate > 60; Glucose Random 95 mg/dL (60-115); Lipase 38 U/L (8-78); Potassium 4.5 mmol/L (3.3-5.1); Sodium 135 mmol/L (135-145); Total Protein 7.3 g/dL (6.5-8.0)
[2021-11-28 12:47] LABS: RBC Urine 0-2 /HPF (0); WBC Urine 0-2 /HPF (0-4)
[2021-11-28 12:48] LABS: Mucus Urine TRACE /LPF; Squamous Epithelial Cell Urine TRACE /LPF
[2021-11-28] MEDS: iohexoL 350 MG/ML 100 ML INFUS..BTL IV (13:25)
[2021-11-28] MEDS: HYDROmorphone HCl 2 MG/ML VIAL 1 MG IVPUSH (13:31)
[2021-11-28 15:52] VITALS: BP 143/78; PULSE 75; RESP 16; TEMP 36.8; O2SAT 99
[2021-11-28 16:46] LABS: Lactic Acid 0.7 mmol/L (0.5-2.0)
== END 2021-11-28 18:34 | disposition home or self-care (01) ==
PROVIDERS: Nurse Practitioner Family; Emergency Provider Emergency Medicine Emergency Medical Services; PCP Nurse Practitioner
DX: R10.9 Unspecified abdominal pain (principal); K59.00 Constipation, unspecified; F17.200 Nicotine dependence, unspecified, uncomplicated; Z98.84 Bariatric surgery status
CPT/HCPCS: 36415; 74176; 74177; 80053; 81001; 81025; 83605; 83690; 85025; 96361; 96374; 96375; 99284; J1170; J2270; Q9967

== ENCOUNTER 2021-12-04 17:42 | Emergency (ER) | payer MEDICAID, SELFPAY ==
--- NOTE | 2021-12-04 17:45 | ED_ITS ---
HPI - Alcohol General Chief Complaint: ETOH/Substance Use <Maryuri Richards NP - Last Filed: 12/05/21 02:16> Stated Complaint: etoh <Maryuri Richards NP - Last Filed: 12/05/21 02:16> Time Seen by Provider: 12/05/21 09:28 <Maryuri Richards NP - Last Filed: 12/05/21 02:16> Source: patient and EMS <Maryuri Richards NP - Last Filed: 12/05/21 02:16> Mode of arrival: EMS <Maryuri Richards NP - Last Filed: 12/05/21 02:16> Limitations: no limitations <Maryuri Richards NP - Last Filed: 12/05/21 02:16> History of Present Illness HPI narrative: 46-year-old female presents via EMS for suicidal statement med while she was in a grocery store and alcohol intoxication. Her family called 911 and patient is on a Section 12. <Maryuri Richards NP - Last Filed: 12/05/21 02:16> MD complaint: alcohol intoxication <Maryuri Richards NP - Last Filed: 12/05/21 02:16> Last drink: Just prior to admission <Maryuri Richards NP - Last Filed: 12/05/21 02:16> Chronic alcohol use: No <Maryuri Richards NP - Last Filed: 12/05/21 02:16> Previous visits for alcohol intoxication: No <Maryuri Richards NP - Last Filed: 12/05/21 02:16> Recent trauma: No <Maryuri Richards NP - Last Filed: 12/05/21 02:16> Associated symptoms: denies other symptoms <Maryuri Richards NP - Last Filed: 12/05/21 02:16> Related Data Home Medications: Home Medications Medication Instructions Recorded Confirmed bupropion HCl 150 mg tablet,12 hr 150 mg PO DAILY 12/04/21 12/04/21 sustained-release cholecalciferol (vitamin D3) 50 1 tab PO DAILY 12/04/21 12/04/21 mcg (2,000 unit) tablet (Vitamin D3) fluoxetine 40 mg capsule 1 cap PO QAM 12/04/21 12/04/21 omeprazole 40 mg capsule,delayed 1 cap PO DAILY 12/04/21 12/04/21 release sucralfate 1 gram tablet 1 tab PO BEDTIME 12/04/21 12/04/21 <Maryuri Richards NP - Last Filed: 12/05/21 02:16> Allergies/Adverse Reactions: Allergies Allergy/AdvReac Type Severity Reaction Status Date / Time No Known Allergies Allergy Verified 03/03/21 06:15 [No Known Allergies*] <Maryuri Richards NP - Last Filed: 12/05/21 02:16> Review of Systems Review of Systems: Patient is belligerent and noncompliant with review of systems <Maryuri Richards NP - Last Filed: 12/05/21 02:16> Yes Unobtainable due to mental status <Maryuri Richards NP - Last Filed: 12/05/21 02:16> [facility] Past Medical History Attestation statement: The following information was validated with the patient. <Maryuri Richards NP - Last Filed: 12/05/21 02:16> Source: old records reviewed <Maryuri Richards NP - Last Filed: 12/05/21 02:16> Medical History: Medical History Acquired gastric fistula Anxiety Cervical radiculopathy Depression GERD (gastroesophageal reflux disease) Hx of esophagitis Vitamin D deficiency <Maryuri Richards NP - Last Filed: 12/05/21 02:16> Surgical History: Surgical History History of esophagogastroduodenoscopy (EGD) Hx of section Hx of cholecystectomy Hx of gastric bypass Hx of tubal ligation <Maryuri Richards NP - Last Filed: 12/05/21 02:16> Social History Social History: Social History Alcohol intake: current Alcohol intake frequency: a few times a week Patient Tobacco Use Status: Current everyday Tobacco user Advance Directives: No Advance Directives Information Provided: No <DEXTER Loera Last Filed: 12/05/21 02:16> Physical Exam ED Vital Signs: Vital Signs - 24 hr 12/04/21 17:51 12/04/21 19:27 12/05/21 06:34 Temperature 98.9 F 98.6 F Pulse Rate 100 98 100 Respiratory Rate 18 22 H 16 Blood Pressure 141/94 H 127/53 L 151/96 H Pulse Oximetry 98 98 97 BMI result Body Mass Index 34.3 <Maryuri Richards NP - Last Filed: 12/05/21 02:16> Vital Signs - 24 hr 12/04/21 17:51 12/04/21 19:27 12/05/21 06:34 Temperature 98.9 F 98.6 F Pulse Rate 100 98 100 Respiratory Rate 18 22 H 16 Blood Pressure 141/94 H 127/53 L 151/96 H Pulse Oximetry 98 98 97 BMI result Body Mass Index 34.3 <KADY Drake - Last Filed: 12/05/21 09:31> Appearance: Alert. Oriented X3. Intoxicated Eyes: Pupils equal, round and reactive to light. ENT: Pharynx normal. Neck: Normal inspection. Neck supple. CVS: Normal heart rate and rhythm. Pulses normal. Respiratory: No respiratory distress. Breath sounds normal. Abdomen: Soft and nontender. Skin: Skin warm and dry. Normal skin color. Normal skin turgor. Extremities: No lower extremity edema. Gait balanced and coordinated Neuro: No motor deficit. No sensory deficit. Cranial nerves 2-12 intact <Maryuri Richards NP - Last Filed: 12/05/21 02:16> Course Course Course Narrative: 46-year-old female presents via EMS for alcohol intoxication and suicidal ideation. Patient is not answering any of my questions, stating nobody understands. Patient is yelling and is noncompliant with care at this time. Threatening to walk out. Multiple RNs and technicians attempting to redirect. Security at bedside. 18:01 patient belligerent. Not compliant with care. Verbally aggressive. Behavior restraints that ordered at this time. Patient would not speak to this [employer]. RN has been trying to deescalate with poor effect. 18:15 patient attempting to flee the facility. Made it out the front doors, security and RN with patient. 18:25 patient returns to her room, continues to be verbally aggressive and belligerent. Intermittently vomiting secondary to alcohol intoxication. 1900 p.m. patient is calmer. Family at bedside. Patient is a Section 12 bed search. 02:14 physician observation started at this time <Maryuri Richards NP - Last Filed: 12/05/21 02:16> 46-year-old female presents via EMS for alcohol intoxication and suicidal ideation. Patient is not answering any of my questions, stating nobody understands. Patient is yelling and is noncompliant with care at this time. Threatening to walk out. Multiple RNs and technicians attempting to redirect. Security at bedside. 18:01 patient belligerent. Not compliant with care. Verbally aggressive. Behavior restraints that ordered at this time. Patient would not speak to this [employer]. RN has been trying to deescalate with poor effect. 18:15 patient attempting to flee the facility. Made it out the front doors, security and RN with patient. 18:25 patient returns to her room, continues to be verbally aggressive and belligerent. Intermittently vomiting secondary to alcohol intoxication. 1900 p.m. patient is calmer. Family at bedside. Patient is a Section 12 bed search. 02:14 physician observation started at this time 12/05/2021 09:29 Patient is still under physician observation at this time. Patient's medication reconcilation was completed and patient's medications ordered. Patient is calm at this time. Section 12 bed search continues. Patient's vital signs stable. No neurologic deficits. <KADY Drake - Last Filed: 12/05/21 09:31> MDM - Alcohol MDM Narrative Medical decision making narrative: Suicidal ideation and statements <Maryuri Richards NP - Last Filed: 12/05/21 02:16> Differential Diagnosis Differential diagnosis: Likely alcohol intoxication <Maryuri Richards NP - Last Filed: 12/05/21 02:16> Medical Records Attestation: I reviewed the patient's medical records. <Maryuri Richards NP - Last Filed: 12/05/21 02:16> Lab Data Attestation: I reviewed the patient's lab results. <Maryuri Richards NP - Last Filed: 12/05/21 02:16> Labs: Lab Results 12/04/21 12/04/21 12/04/21 Range/Units 18:30 18:30 18:37 Urine Color STRAW Urine Appearance CLEAR Urine pH 6.0 (5.0-8.0) Ur Specific [place] <= 1.005 (1.005-1.025) Urine Protein NEG (NEG-TRACE) MG/DL Urine Glucose (UA) NEG (NEG) MG/DL Urine Ketones NEG (NEG) MG/DL Urine Blood NEG (NEG) Urine Nitrite NEG (NEG) Ur Leukocyte Esterase NEG (NEG) Salicylates < 5.0 L (15-30) mg/dL Urine Opiates Screen Not Detected (Not Detect) Urine Fentanyl Screen Not Detected (Not Detect) Acetaminophen < 1 (<30) mcg/mL Ur Barbiturates Screen Not Detected (Not Detect) Ur Phencyclidine Scrn Not Detected (Not Detect) Ur Amphetamines Screen Not Detected (Not Detect) U Benzodiazepines Scrn Not Detected (Not Detect) Urine Cocaine Screen Not Detected (Not Detect) U Marijuana (THC) Screen Not Detected (Not Detect) Ethyl Alcohol mg/dL COVID-19 (ALAN) (Negative) [employer] 12/04/21 12/04/21 Range/Units 18:37 21:37 Urine Color Urine Appearance Urine pH (5.0-8.0) Ur Specific [place] (1.005-1.025) Urine Protein (NEG-TRACE) MG/DL Urine Glucose (UA) (NEG) MG/DL Urine Ketones (NEG) MG/DL Urine Blood (NEG) Urine Nitrite (NEG) Ur Leukocyte Esterase (NEG) Salicylates (15-30) mg/dL Urine Opiates Screen (Not Detect) Urine Fentanyl Screen (Not Detect) Acetaminophen (<30) mcg/mL Ur Barbiturates Screen (Not Detect) Ur Phencyclidine Scrn (Not Detect) Ur Amphetamines Screen (Not Detect) U Benzodiazepines Scrn (Not Detect) Urine Cocaine Screen (Not Detect) U Marijuana (THC) Screen (Not Detect) Ethyl Alcohol 310 H* mg/dL COVID-19 (ALAN) Negative (Negative) COVID-19 [employer] See Note <Maryuri Richards NP - Last Filed: 12/05/21 02:16> Lab Results 12/04/21 12/04/21 12/04/21 Range/Units 18:30 18:30 18:37 Urine Color STRAW Urine Appearance CLEAR Urine pH 6.0 (5.0-8.0) Ur Specific [place] <= 1.005 (1.005-1.025) Urine Protein NEG (NEG-TRACE) MG/DL Urine Glucose (UA) NEG (NEG) MG/DL Urine Ketones NEG (NEG) MG/DL Urine Blood NEG (NEG) Urine Nitrite NEG (NEG) Ur Leukocyte Esterase NEG (NEG) Salicylates < 5.0 L (15-30) mg/dL Urine Opiates Screen Not Detected (Not Detect) Urine Fentanyl Screen Not Detected (Not Detect) Acetaminophen < 1 (<30) mcg/mL Ur Barbiturates Screen Not Detected (Not Detect) Ur Phencyclidine Scrn Not Detected (Not Detect) Ur Amphetamines Screen Not Detected (Not Detect) U Benzodiazepines Scrn Not Detected (Not Detect) Urine Cocaine Screen Not Detected (Not Detect) U Marijuana (THC) Screen Not Detected (Not Detect) Ethyl Alcohol mg/dL COVID-19 (ALAN) (Negative) [employer] 12/04/21 12/04/21 Range/Units 18:37 21:37 Urine Color Urine Appearance Urine pH (5.0-8.0) Ur Specific [place] (1.005-1.025) Urine Protein (NEG-TRACE) MG/DL Urine Glucose (UA) (NEG) MG/DL Urine Ketones (NEG) MG/DL Urine Blood (NEG) Urine Nitrite (NEG) Ur Leukocyte Esterase (NEG) Salicylates (15-30) mg/dL Urine Opiates Screen (Not Detect) Urine Fentanyl Screen (Not Detect) Acetaminophen (<30) mcg/mL Ur Barbiturates Screen (Not Detect) Ur Phencyclidine Scrn (Not Detect) Ur Amphetamines Screen (Not Detect) U Benzodiazepines Scrn (Not Detect) Urine Cocaine Screen (Not Detect) U Marijuana (THC) Screen (Not Detect) Ethyl Alcohol 310 H* mg/dL COVID-19 (ALAN) Negative (Negative) [employer] See Note <KADY Drake - Last Filed: 12/05/21 09:31> Discharge Plan Discharge Clinical Impression: Alcoholic intoxication, Feeling suicidal <Maryuri Richards NP - Last Filed: 12/05/21 02:16> Patient Disposition: Still a Patient <Maryuri Richards NP - Last Filed: 12/05/21 02:16> Instructions: Alcohol Intoxication (ED), Abuse of Alcohol (DC) <Maryuri Richards NP - Last Filed: 12/05/21 02:16> Additional Instructions: Follow-up with outpatient psychiatry as scheduled. Thank you for choosing this emergency department for evaluation. Please follow-up with primary care physician as needed. Return to the emergency department for any new, concerning, or worsening symptoms. <Maryuri Richards NP - Last Filed: 12/05/21 02:16> Prescriptions: No Action fluoxetine 40 mg capsule 1 cap PO QAM 0RF bupropion HCl 150 mg tablet sustained-release 12 hr 150 mg PO DAILY 0RF sucralfate 1 gram tablet 1 tab PO BEDTIME 0RF omeprazole 40 mg capsule,delayed release(DR/EC) 1 cap PO DAILY 0RF cholecalciferol (vitamin D3) [Vitamin D3] 50 mcg (2,000 unit) tablet 1 tab PO DAILY 0RF <Maryuri Richards NP - Last Filed: 12/05/21 02:16>
[2021-12-04 17:51] VITALS: BP 141/94; PULSE 100; RESP 18; O2SAT 98; BMI 34.3
[2021-12-04 18:36] LABS: Appearance Urine CLEAR; Color Urine STRAW; Glucose Urine UA NEG (NEG); Leukocyte Esterase Urine NEG (NEG); Nitrite Urine NEG (NEG); Specific Gravity - Urine <= 1.005 (1.005-1.025); Urine Blood NEG (NEG); Urine Ketones NEG (NEG); Urine Protein NEG (NEG-TRACE)
[2021-12-04 18:52] LABS: Amphetamine Screen Urine Not Detected (Not Detect); Barbiturates, Urine Not Detected (Not Detect); Benzodiazepines Screen Urine Not Detected (Not Detect); Cannabinoid Screen Urine Not Detected (Not Detect); Cocaine Screen Urine Not Detected (Not Detect); Fentanyl, urine Not Detected (Not Detect); Opiate Screen Urine Not Detected (Not Detect); Phencyclidine Screen Urine Not Detected (Not Detect)
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
[2021-12-04 18:56] LABS: Ethanol 310 mg/dL
[2021-12-04 18:59] LABS: Acetaminophen LAB < 1 mcg/mL (<30); Salicylate < 5.0 mg/dL (15-30)
--- NOTE | 2021-12-04 19:01 | PC.NURSE ---
pt will become upset and tearful, state that she is going to leave then accept redirection to [facility] or get blood work or go back to hr room, no need to administer IM medication at this time. T/w offered pt medication to help her calm down and she refused
[2021-12-04 19:27] VITALS: BP 127/53; PULSE 98; RESP 22; TEMP 37.2; O2SAT 98
[2021-12-04] MEDS: HaloperidoL 5 MG TABLET PO (20:00)
[2021-12-04] MEDS: LORazepam 1 MG TABLET 2 MG PO (20:00)
--- NOTE | 2021-12-04 20:16 | PC.NURSE ---
IM medications not given by previous RN. this RN checked with provider to clarify which meds should be given. Provider stated that at this time pt should receive PO meds. pt initially hesitant to take PO meds but then took them without issue. Provider (Maryuri Frank NP) aware.
--- NOTE | 2021-12-04 20:16 | PC.NURSE ---
[facility] online referral completed by this RN.
[2021-12-04 21:57] LABS: COVID-19 Test Negative (Negative)
--- NOTE | 2021-12-05 06:32 | PC.NURSE ---
Patient slept through the night, no distress observed/reported, asymptomatic of withdrawal, [facility] referral completed/confirmed, pending evaluation in AM, behavior non concerning at this time, med rec completed/pending provider's approval, will continue to monitor.
[2021-12-05 06:34] VITALS: BP 151/96; PULSE 100; RESP 16; TEMP 37; O2SAT 97
--- NOTE | 2021-12-05 07:44 | PC.NURSE ---
patient appears to remain at rest at present respirations are even and unlabored patient appears in no distress
[2021-12-05] MEDS: FLUoxetine HCl 20 MG CAPSULE 40 MG PO (11:03)
[2021-12-05] MEDS: Cholecalciferol (Vitamin D3) 25 MCG TABLET 50 MCG PO (11:03)
== END 2021-12-05 15:38 | disposition home or self-care (01) ==
PROVIDERS: Nurse Practitioner Family; Emergency Provider Emergency Medicine
DX: F10.920 Alcohol use, unspecified with intoxication, uncomplicated (principal); Y90.8 Blood alcohol level of 240 mg/100 ml or more; R45.851 Suicidal ideations; R45.1 Restlessness and agitation; Z20.822 Contact with and (suspected) exposure to COVID-19; F17.200 Nicotine dependence, unspecified, uncomplicated; Z79.899 Other long term (current) drug therapy
CPT/HCPCS: 80143; 80179; 80307; 81003; 82077; 87635; 96372; 99284; 99285

== ENCOUNTER → 2021-12-09 10:56 | Outpatient (BNVA) | payer MEDICAID, SELFPAY | PROVIDERS: PCP Nurse Practitioner; Referring Provider Nurse Practitioner; Visit Provider Physician Assistant | DX: E66.01 Morbid (severe) obesity due to excess calories (principal); Z68.41 Body mass index [BMI] 40.0-44.9, adult; K21.9 Gastro-esophageal reflux disease without esophagitis; K31.6 Fistula of stomach and duodenum; F32.9 Major depressive disorder, single episode, unspecified; F10.20 Alcohol dependence, uncomplicated; F17.210 Nicotine dependence, cigarettes, uncomplicated; Z98.84 Bariatric surgery status; Z71.6 Tobacco abuse counseling; Z71.3 Dietary counseling and surveillance | CPT/HCPCS: 99202 ==

== ENCOUNTER 2022-03-02 07:44 | Outpatient (REF) | payer MEDICAID, SELFPAY ==
[2022-03-02 08:18] LABS: MANUAL DIFF FLAG NO
[2022-03-02 08:41] LABS: Basophils Percent Auto 0.5 % (0-2); Eosinophils Absolute Auto 0.1 X10*3/uL (0.0-0.4); Eosinophils Percent Auto 1.2 % (0-4); Hematocrit 37.9 % (37.0-47.0); Hemoglobin 12.2 g/dl (12.0-16.0); Imm Gran Abs Auto 0.03 X10*3/uL (0.00-0.03); Imm Gran Pct Auto 0.5 % (0.0-0.4); Lymphocytes Absolute Auto 1.5 X10*3/uL (1.2-4.9); Lymphocytes Percent Auto 25.6 % (20-40); Mean Corpuscular HGB Conc 32.2 g/dl (31.0-35.0); Mean Corpuscular Hemoglobin 31.4 pg (27.0-33.0); Mean Corpuscular Volume 97.7 fL (80.0-98.0); Mean Platelet Volume 10.1 fL (9.4-12.3); Monocytes Absolute Auto 0.6 X10*3/uL (0.1-1.2); Monocytes Percent Auto 9.6 % (2-11); Neutrophils Absolute Auto 3.6 x10*3/uL (2.0-8.3); Neutrophils Percent Auto 62.6 % (45-73); Platelet Count 251 X10*3/uL (160-400); Red Blood Count 3.88 X10*6/uL (4.20-5.50); Red Cell Distribution Width 13.2 % (11.0-16.0); White Blood Count 5.7 X10*3/uL (4.8-10.8)
[2022-03-02 08:45] LABS: Estimated Average Glucose 94 mg/dL; Hemoglobin A1C 89.9555 umol/L; Hemoglobin A1c % 4.9 %
[2022-03-02 09:05] LABS: Alanine Aminotransferase 11 U/L (0-31); Albumin Level 3.8 g/dL (3.5-5.0); Alkaline Phosphatase 72 U/L (39-117); Anion Gap 11 (12-20); Aspartate Amino Transferase 16 U/L (5-31); Bilirubin Total 0.6 mg/dL (0.0-1.0); Blood Urea Nitrogen 9 mg/dL (9-16); C Reactive Protein 0.26 mg/dL (< or = 0.50); Calcium 9.2 mg/dL (8.4-10.2); Carbon Dioxide 25 mmol/L (22-29); Chloride 107 mmol/L (96-108); Cholesterol 229 mg/dL; Estimated Glomerular Filt Rate > 60; Glucose Random 100 mg/dL (60-115); HDL Cholesterol 68 mg/dL; Iron 94 mcg/dL (30-160); LDL Cholesterol Calculated 142 mg/dl; Percent Iron Saturation 32 % (15-50); Potassium 4.7 mmol/L (3.3-5.1); Sodium 138 mmol/L (135-145); Total Iron Binding Capacity 298 mcg/dL (228-428); Triglycerides 96 mg/dL; Unsaturated Iron Binding 204 ug/dL
[2022-03-02 09:26] LABS: Ferritin 36 ng/mL (10-250); Insulin 7 uU/mL (2-29); TSH reflex Free T4 1.63 uIU/mL (0.32-4.0); Vitamin D 25-OH Total 24.9 ng/mL (>30)
[2022-03-02 09:39] LABS: Folate 11.4 ng/mL (> or = 4.0); Vitamin B12 181 pg/mL (200-900)
[2022-03-03 13:46] LABS: Calcium (PTHI) 9.4 mg/dL (8.6-10.2); PTHI 71 pg/mL (16-77)
[2022-03-06 00:51] LABS: Zinc 55 mcg/dL (60-130)
[2022-03-07 17:33] LABS: Vitamin B1 12 nmol/L (8-30)
[2022-03-09 10:32] LABS: Vitamin A 39 mcg/dL (38-98)
== END 2022-03-02 07:45 | disposition home or self-care (01) ==
LOC: HO.LAB 07:44
PROVIDERS: PCP Nurse Practitioner; Visit Provider Physician Assistant
DX: K21.9 Gastro-esophageal reflux disease without esophagitis (principal); K31.6 Fistula of stomach and duodenum; Z98.84 Bariatric surgery status
CPT/HCPCS: 36415; 80053; 80061; 82306; 82607; 82728; 82746; 83036; 83525; 83540; 83970; 84425; 84443; 84590; 84630; 85025; 86140

== ENCOUNTER 2022-11-22 11:39 | Emergency (ER) | payer MEDICAID, SELFPAY ==
--- NOTE | 2022-11-22 12:30 | ED.EYEPROB ---
HPI - Eye Problem General Chief complaint: Eye Problems <KADY Hickey - Last Filed: 11/22/22 12:44> Stated complaint: swollen/pain in R eye <KADY Hickey - Last Filed: 11/22/22 12:44> Time Seen by Provider: 11/22/22 14:02 <KADY Hickey - Last Filed: 11/22/22 12:44> Source: patient <KADY Drake Last Filed: 11/22/22 16:21> Mode of arrival: ambulatory <KADY Drake - Last Filed: 11/22/22 16:21> Limitations: no limitations <KADY Drake Last Filed: 11/22/22 16:21> History of Present Illness HPI Narrative: Patient is a 47 year old assigned female at with a history of depression and GERD presenting to the emergency department today with right eye redness and pain. Patient states that for the last year she has had intermittent right eye redness, pain, and blurring of the vision. Patient states that she has seen an heating and ventilating tender twice but has never seen an travel journalist. Patient denies any dizziness, lightheadedness, abdominal pain, nausea, vomiting, fever, chills, double vision, loss of vision, chest pain, difficulty breathing, shortness of breath, back pain, night sweats, pain with urination, increased urinary frequency, increased urinary urgency, blood in her urine or stool, syncope or a near syncopal episode, recent trauma or falls, bowel incontinence, bladder incontinence, bowel retention, bladder retention, or any other complaints at this time. <KADY Drake - Last Filed: 11/22/22 16:21> MD chief complaint: eye pain and eye redness <KADY Drake - Last Filed: 11/22/22 16:21> Onset (ago): year(s) (1) <KADY Drake Last Filed: 11/22/22 16:21> Duration: intermittent <KADY Drake Last Filed: 11/22/22 16:21> Location: right eye <KADY Drake Last Filed: 11/22/22 16:21> Eye Symptoms: redness and pain <KADY Drake Last Filed: 11/22/22 16:21> Place: home <KADY Drake - Last Filed: 11/22/22 16:21> Mechanism: none <KADY Drake - Last Filed: 11/22/22 16:21> Severity: mild <KADY Drake - Last Filed: 11/22/22 16:21> Severity scale (1-10): 3 <KADY Drake - Last Filed: 11/22/22 16:21> If Pain, Quality: burning <KADY Drake - Last Filed: 11/22/22 16:21> Associated symptoms: none <KADY Drake - Last Filed: 11/22/22 16:21> Treatments Prior to Arrival: none <KADY Drake - Last Filed: 11/22/22 16:21> Related Data Home medications: Home Medications Medication Instructions Recorded Confirmed bupropion HCl 150 mg tablet,12 hr 150 mg PO DAILY 12/04/21 12/09/21 sustained-release cholecalciferol (vitamin D3) 50 1 tab PO DAILY 12/04/21 12/09/21 mcg (2,000 unit) tablet (Vitamin D3) fluoxetine 40 mg capsule 1 cap PO QAM 12/04/21 12/09/21 sucralfate 1 gram tablet 1 tab PO BEDTIME 12/04/21 12/09/21 pantoprazole 40 mg tablet,delayed 1 tab PO BID 12/05/21 12/09/21 release Previous Rx's Medication Instructions Recorded zinc gluconate 50 mg tablet 50 mg PO DAILY #30 tabs 03/08/22 cyanocobalamin (vitamin B-12) 500 500 mcg PO DAILY #90 tabs 09/14/22 mcg tablet ofloxacin 0.3 % eye drops See Rx Instructions ophthalmic 11/22/22 (eye) .COMPLEX #10 mL <KADY Hickey - Last Filed: 11/22/22 12:44> Allergies/adverse reactions: Allergies Allergy/AdvReac Type Severity Reaction Status Date / Time No Known Allergies Allergy Verified 11/22/22 12:30 [No Known Allergies*] <KADY Hickey - Last Filed: 11/22/22 12:44> Review of Systems Constitutional: Constitutional: Reports no additional constitutional complaints, Denies chills, Denies fever(s) and Denies night sweats <KADY Drake - Last Filed: 11/22/22 16:21> Eyes: Eyes: Reports no additional eye complaints, Reports blurry vision (now resolved), Denies change in vision, Denies diplopia, Denies eye discharge, Reports irritation, Denies loss of vision and Reports eye pain <KADY Drake - Last Filed: 11/22/22 16:21> ENT: Denies dizziness <KADY Drake - Last Filed: 11/22/22 16:21> Cardiovascular: Cardiovascular: Reports no additional cardiovascular complaints, Denies chest pain, Denies lightheadedness, Denies Loss of Consciousness and Denies dyspnea <KADY Drake - Last Filed: 11/22/22 16:21> Respiratory: Respiratory: Reports no additional respiratory complaints and Denies dyspnea <KADY Drake - Last Filed: 11/22/22 16:21> Gastrointestinal: Gastrointestinal: Reports no additional gastrointestinal complaints, Denies abdominal pain, Denies melena, Denies hematochezia, Denies change in bowel habits and Denies change in stool character <KADY Drake - Last Filed: 11/22/22 16:21> Genitourinary: Genitourinary: Denies hematuria, Denies urinary frequency, Denies dysuria, Denies urinary incontinence, Denies urinary hesitancy and Denies urinary urgency <KADY Drake - Last Filed: 11/22/22 16:21> Musculoskeletal: Musculoskeletal: Reports no additional musculoskeletal complaints, Denies numbness and Denies tingling <KADY Drake - Last Filed: 11/22/22 16:21> Neurologic: Denies dizziness, Denies loss of vision, Denies numbness and Denies tingling <KADY Drake - Last Filed: 11/22/22 16:21> Psychiatric: Psychiatric: Reports no additional psychiatric complaints <KADY Drake - Last Filed: 11/22/22 16:21> Endocrine: Endocrine: Reports no additional endocrine complaints <KADY Drake - Last Filed: 11/22/22 16:21> Hematologic/Lymphatic: Hematologic/Lymphatic: Reports no additional hematologic/lymphatic complaints <KADY Drake - Last Filed: 11/22/22 16:21> Allergic/Immunologic: Allergic/Immunologic: Reports no additional allergic/immunologic complaints <KADY Drake - Last Filed: 11/22/22 16:21> FOR[facility], [facility] Past Medical History Attestation statement: The following information was validated with the patient. <KADY Drake - Last Filed: 11/22/22 16:21> Source: old records reviewed and nursing notes reviewed <KADY Drake - Last Filed: 11/22/22 16:21> Medical History: Medical History Acquired gastric fistula Anxiety Cervical radiculopathy Depression GERD (gastroesophageal reflux disease) Hx of esophagitis Vitamin D deficiency <KADY Hickey - Last Filed: 11/22/22 12:44> Surgical History: Surgical History History of esophagogastroduodenoscopy (EGD) Hx of section Hx of cholecystectomy Hx of gastric bypass Hx of tubal ligation <KADY Hickey - Last Filed: 11/22/22 12:44> Family History Family History: Family History Mother Diabetes Thyroid condition Mental health disorder Fibromyalgia Father COPD (chronic obstructive pulmonary disease) Hypertension Sister Kamaljit encephalopathy Brother Schizo affective schizophrenia Thyroid condition Brother Graves disease Heart problem Brother No problems noted. Daughter GERD (gastroesophageal reflux disease) Son No problems noted. Son GERD (gastroesophageal reflux disease) Asthma <KADY Hickey - Last Filed: 11/22/22 12:44> Social History Social History: Social History Alcohol intake: former Patient Tobacco Use Status: Current everyday Tobacco user Tobacco use type: Cigarette Cigarettes Per Day: 4 Advance Directives: No Advance Directives Information Provided: No <KADY Hickey - Last Filed: 11/22/22 12:44> Physical Exam Vital Signs: Vital Signs: Last Vital Signs Temp 97.2 F 11/22/22 12:31 Pulse 79 11/22/22 12:31 Resp 18 11/22/22 12:31 BP 147/97 H 11/22/22 12:31 Pulse Ox 97 11/22/22 12:31 O2 Del Method 11/22/22 12:31 BMI result Body Mass Index 45.7 <KADY Hickey - Last Filed: 11/22/22 12:44> Vital Signs: Last Vital Signs Temp 97.2 F 11/22/22 12:31 Pulse 79 11/22/22 12:31 Resp 18 11/22/22 12:31 BP 147/97 H 11/22/22 12:31 Pulse Ox 97 11/22/22 12:31 O2 Del Method 11/22/22 12:31 BMI result Body Mass Index 45.7 <KADY Drake - Last Filed: 11/22/22 16:21> Const: General: cooperative, no acute distress, alert and awake <KADY Drake - Last Filed: 11/22/22 16:21> Nutritional Appearance: well nourished <KADY Drake - Last Filed: 11/22/22 16:21> Orientation/consciousness: patient oriented x3 <KADY Drake - Last Filed: 11/22/22 16:21> Limitations: no limitations <KADY Drake - Last Filed: 11/22/22 16:21> HEENT: Head: Yes normal to inspection and Yes atraumatic <KADY Drake - Last Filed: 11/22/22 16:21> Ears: hearing grossly normal bilaterally and external ears normal <KADY Drake - Last Filed: 11/22/22 16:21> General nose exam: Normal external nose present, no nasal discharge noted and no epistaxis <KADY Drake - Last Filed: 11/22/22 16:21> Face and sinus: Yes normal facial exam, No abrasion and No laceration <KADY Drake - Last Filed: 11/22/22 16:21> Mouth: Normal oral and palatal mucosa present, no drooling and no muffled voice <KADY Drake - Last Filed: 11/22/22 16:21> Eyes: Periorbital: periorbital findings normal <KADY Drake - Last Filed: 11/22/22 16:21> Eyelids: Yes eyelids normal <Yvette Plunkett PA - Last Filed: 11/22/22 16:21> Conjunctivae: conjunctivae normal <Yvette Plunkett PA - Last Filed: 11/22/22 16:21> Sclerae: scleral abnormal right scleral injection diffuse <Yvette Plunkett PA - Last Filed: 11/22/22 16:21> Pupils: Equal, round and reactive pupils present <Yvette Plunkett PA - Last Filed: 11/22/22 16:21> EOM: EOMs intact bilaterally <Yvette Plunkett, PA - Last Filed: 11/22/22 16:21> Neck: Neck: Yes normal visual inspection, Yes full ROM and Yes no lymphadenopathy <Yvette Plunkett PA - Last Filed: 11/22/22 16:21> Chest: Chest palpation & inspection: normal inspection of the chest <Yvette Plunkett PA - Last Filed: 11/22/22 16:21> Resp: Effort & Inspection: normal respiratory effort and able to speak in complete sentences <Yvette Plunkett PA - Last Filed: 11/22/22 16:21> Auscultation: clear to auscultation bilaterally <Yvette Plunkett PA - Last Filed: 11/22/22 16:21> Cardio: Rate: regular rate <Yvette Plunkett PA - Last Filed: 11/22/22 16:21> Rhythm: regular rhythm <Yvette Plunkett PA - Last Filed: 11/22/22 16:21> GI: Inspection: Yes normal to inspection <Yvette Plunkett PA - Last Filed: 11/22/22 16:21> Neuro: General: patient oriented x3 and moves all extremities <Yvette Plunkett PA - Last Filed: 11/22/22 16:21> Cranial nerves: Yes Equal, round and reactive pupils present <Yvette Plunkett PA - Last Filed: 11/22/22 16:21> Cognition (Neuro): normal cognition <Yvette Plunkett PA - Last Filed: 11/22/22 16:21> Motor exam (neuro): 5/5 motor strength present throughout <Yvette Plunkett PA - Last Filed: 11/22/22 16:21> Sensory Exam: Normal double simultaneous stimulation for sensation <KADY Drake - Last Filed: 11/22/22 16:21> Coordination: [id number]-ja-[id number] test normal <KADY Drake Last Filed: 11/22/22 16:21> Extrem: General: Yes normal to inspection, Yes full ROM and Yes capillary refill normal <KADY Drake - Last Filed: 11/22/22 16:21> Psych: Appearance: grossly normal <KADY Drake - Last Filed: 11/22/22 16:21> Mental Status: mental status grossly normal <KADY Drake - Last Filed: 11/22/22 16:21> Affect: normal affect <KADY Drake Last Filed: 11/22/22 16:21> Attitude: cooperative <KADY Drake - Last Filed: 11/22/22 16:21> Thought process: Normal thought process present <KADY Drake Last Filed: 11/22/22 16:21> Thought content: Normal thought content present <KADY Drake Last Filed: 11/22/22 16:21> Insight: Good insight present (Psych) <KADY Drake - Last Filed: 11/22/22 16:21> Course Course Course Narrative: AMELIA-12:30PM- 47yoF presenting to the ER with complaints of 1 year of pain/redness to her right eye today she woke up with blurry vision x 2 days ago. Has been seen by travel journalist and was given a cream and some drops although no symptomatic relief. Plan: Patient will be sent to [facility] for eye exam. <KADY Hickey - Last Filed: 11/22/22 12:44> Medications Administered Discontinued Medications Generic Name Dose Route Start Last Admin Trade Name José Miguelq PRN Reason Stop Dose Admin Fluorescein Sodium 1 strip 11/22/22 12:43 11/22/22 14:44 Fluorescein Sodium Strip EYE-BOTH 11/22/22 12:44 Not Given ONCE ONE Tetracaine HCl 1 drop 11/22/22 12:43 11/22/22 14:44 Tetracaine Hcl/Pf 0.5% Oph Debbie 4 Ml Drops EYE-BOTH 11/22/22 12:44 Not Given ONCE ONE <KADY Hickey - Last Filed: 11/22/22 12:44> Medications Administered Discontinued Medications Generic Name Dose Route Start Last Admin Trade Name Albino PRN Reason Stop Dose Admin Fluorescein Sodium 1 strip 11/22/22 12:43 11/22/22 14:44 Fluorescein Sodium Strip EYE-BOTH 11/22/22 12:44 Not Given ONCE ONE Tetracaine HCl 1 drop 11/22/22 12:43 11/22/22 14:44 Tetracaine Hcl/Pf 0.5% Oph Debbie 4 Ml Drops EYE-BOTH 11/22/22 12:44 Not Given ONCE ONE <KADY Drake - Last Filed: 11/22/22 16:21> Medical Decision Making Medical Decision Making MDM Narrative: Patient is a 47 year old assigned female at with a history of depression and GERD presenting to the emergency department today with right eye pain and irritation. Patient's physical exam showed right eye redness but was otherwise unremarkable. Patient's visual acuity was normal as well as pressures. I explained my physical exam findings to the patient. I answered all questions asked by the patient. I stressed the importance of the patient taking her medication as prescribed. I stressed the importance of the patient following up with her primary care provider and an travel journalist. I stressed the importance of the patient returning to the emergency department immediately if her symptoms were to worsen or if she were to develop any dizziness, shortness of breath, difficulty breathing, chest pain, blurry vision, loss of vision, nausea, vomiting, abdominal pain, fever, chills, back pain, or any other complaints. Patient verbalized agreement and understanding with this treatment plan and discharge. <KADY Drake - Last Filed: 11/22/22 16:21> Differential Diagnosis Differential Diagnoses: The differential diagnosis associated with the presentation includes <KADY Drake Last Filed: 11/22/22 16:21> uveitis <KADY Drake Last Filed: 11/22/22 16:21> Discharge Plan Discharge Clinical Impression: Uveitis <KADY Hickey Last Filed: 11/22/22 12:44> Patient Disposition: Home, Self-Care <KADY Hickey Last Filed: 11/22/22 12:44> Instructions: Iritis (ED) <KADY Hickey Last Filed: 11/22/22 12:44> Additional Instructions: Follow up with your primary care provider and an travel journalist. Return to the emergency department immediately if your symptoms worsen or if you develop any dizziness, shortness of breath, difficulty breathing, chest pain, blurry vision, loss of vision, nausea, vomiting, abdominal pain, fever, chills, back pain, or any other complaints. <KADY Hickey - Last Filed: 11/22/22 12:44> Prescriptions: New ofloxacin 0.3 % drops See Rx Instructions .ROUTE .COMPLEX Qty: 10 0RF Rx Instructions: put 1-2 drps into affected eye(s) every 2-4 h x 2 days, then 1-2 drps 4 times/day days 3-7 No Action zinc gluconate 50 mg tablet 50 mg PO DAILY Qty: 30 6RF cyanocobalamin (vitamin B-12) 500 mcg tablet 500 mcg PO DAILY Qty: 90 2RF fluoxetine 40 mg capsule 1 cap PO QAM bupropion HCl 150 mg tablet sustained-release 12 hr 150 mg PO DAILY sucralfate 1 gram tablet 1 tab PO BEDTIME cholecalciferol (vitamin D3) [Vitamin D3] 50 mcg (2,000 unit) tablet 1 tab PO DAILY pantoprazole 40 mg tablet,delayed release (DR/EC) 1 tab PO BID <KADY Hickey - Last Filed: 11/22/22 12:44> Referrals: [facility] Family Medicine [Provider Group] (Call to establish and follow up with a primary care provider. If you already have a primary care provider, please follow up with them.) [facility] Primary Care, [place] [Provider Group] [facility] Primary Care,[place] [Provider Group] Jong Martinez [Physician] - (Call to establish and follow up with an senior quality methods specialist. ) <KADY Hickey - Last Filed: 11/22/22 12:44> Stand Alone Forms: Work/School Release <KADY Hickey - Last Filed: 11/22/22 12:44> Interventions: ED Discharge Assessment Last Done: 11/22/22 14:45 <KADY Hickey - Last Filed: 11/22/22 12:44> Discharge Date/Time: 11/22/22 14:45 <Annmarie Oliver, PA - Last Filed: 11/22/22 12:44> Print Language: Citizen [place] <KADY Hickey - Last Filed: 11/22/22 12:44>
[2022-11-22 12:31] VITALS: BP 147/97; PULSE 79; RESP 18; TEMP 36.2; O2SAT 97; BMI 45.7
== END 2022-11-22 14:45 | disposition home or self-care (01) ==
PROVIDERS: Emergency Provider Student in an Organized Health Care Education/Training Program
DX: H20.9 Unspecified iridocyclitis (principal); H57.11 Ocular pain, right eye; Z79.899 Other long term (current) drug therapy; F17.210 Nicotine dependence, cigarettes, uncomplicated; Z71.6 Tobacco abuse counseling
CPT/HCPCS: 99282; 99283

== ENCOUNTER 2023-07-08 09:16 | Outpatient (REF) | payer MEDICAID, SELFPAY ==
[2023-07-08 14:52] LABS: MANUAL DIFF FLAG NO
[2023-07-08 15:00] LABS: Basophils Absolute Auto 0.1 X10*3/uL (0.0-0.2); Basophils Percent Auto 0.7 % (0-2); Eosinophils Absolute Auto 0.1 X10*3/uL (0.0-0.4); Eosinophils Percent Auto 1.8 % (0-4); Hematocrit 42.8 % (37.0-47.0); Hemoglobin 13.7 g/dl (12.0-16.0); Imm Gran Abs Auto 0.04 X10*3/uL (0.00-0.03); Imm Gran Pct Auto 0.5 % (0.0-0.4); Lymphocytes Absolute Auto 2.3 X10*3/uL (1.2-4.9); Lymphocytes Percent Auto 29.6 % (20-40); Mean Corpuscular Hemoglobin 31.7 pg (27.0-33.0); Mean Corpuscular Volume 99.1 fL (80.0-98.0); Mean Platelet Volume 11.2 fL (9.4-12.3); Monocytes Absolute Auto 0.6 X10*3/uL (0.1-1.2); Neutrophils Absolute Auto 4.5 x10*3/uL (2.0-8.3); Neutrophils Percent Auto 59.4 % (45-73); Platelet Count 291 X10*3/uL (160-400); Red Blood Count 4.32 X10*6/uL (4.20-5.50); Red Cell Distribution Width 13.5 % (11.0-16.0); White Blood Count 7.6 X10*3/uL (4.8-10.8)
[2023-07-08 15:06] LABS: Estimated Average Glucose 94 mg/dL; Hemoglobin A1c % 4.9 % (<6.0)
[2023-07-08 15:20] LABS: Alanine Aminotransferase 9 U/L (0-31); Albumin Level 3.4 g/dL (3.5-5.0); Alkaline Phosphatase 71 U/L (39-117); Anion Gap 12 (12-20); Aspartate Amino Transferase 20 U/L (5-31); Bilirubin Total 0.5 mg/dL (0.0-1.0); Blood Urea Nitrogen 14 mg/dL (9-16); Calcium 9.3 mg/dL (8.4-10.2); Carbon Dioxide 25 mmol/L (22-29); Chloride 107 mmol/L (96-108); Cholesterol 199 mg/dL (<200); Estimated Glomerular Filt Rate > 60; Glucose Fasting 81 mg/dL (60-99); HDL Cholesterol 53 mg/dL (>40); LDL Cholesterol Calculated 125 mg/dL (<100); Potassium 4.9 mmol/L (3.3-5.1); Sodium 139 mmol/L (135-145); Total Protein 6.3 g/dL (6.5-8.0); Triglycerides 106 mg/dL (<150)
[2023-07-08 15:32] LABS: Creatinine Urine 117.55 mg/dL; Microalbumin Urine < 5.0 mg/L
[2023-07-08 15:41] LABS: TSH reflex Free T4 1.13 uIU/mL (0.32-4.0)
[2023-07-08 16:54] LABS: CT PCR NOT DETECTED (Not Detect.); NG PCR NOT DETECTED (Not Detect.)
[2023-07-09 03:56] LABS: HBS Num1 0.64 mIU/mL (0-7.99); HBc Num1 0.22 S/CO (0.00-0.79); HBsAGNum1 0.36 S/CO (0.00-0.99); HIV AB/AG Nonreactive (Nonreactive); HIV Num 1 0.04 S/CO (0.00-0.99); Hepatitis B Core Antibody Nonreactive (Nonreactive); Hepatitis B Surface Antigen Negative (Negative); ~Hepatitis B Surface Antibody NONREACTIVE (Nonreactive)
[2023-07-11 11:13] LABS: RPR Rapid Plasma Reagin NON-REACTIVE (NON-REACTIVE)
[2023-07-11 15:37] LABS: HCV Log PCR <1.18 NOT DETECTED Log IU/mL (NOT DETECTED); HepC Viral Load <15 NOT DETECTED IU/mL (NOT DETECTED)
== END 2023-07-08 09:17 | disposition home or self-care (01) ==
LOC: HO.CHCLDS 09:16
PROVIDERS: Visit Provider Registered Nurse
DX: Z00.00 Encounter for general adult medical examination without abnormal findings (principal); Z11.3 Encounter for screening for infections with a predominantly sexual mode of transmission
CPT/HCPCS: 0353U; 80053; 80061; 82043; 82570; 83036; 84443; 85025; 86592; 86704; 86706; 87340; 87389; 87522

== ENCOUNTER 2023-08-19 09:08 | Outpatient (REF) | payer MEDICAID, SELFPAY ==
[2023-08-25 21:38] LABS: HPV mRNA E6/E7 rflx Not Detected (Not Detected)
== END 2023-08-19 09:09 | disposition home or self-care (01) ==
LOC: HO.HHCLNP 09:08
PROVIDERS: Visit Provider Registered Nurse
DX: Z01.419 Encounter for gynecological examination (general) (routine) without abnormal findings (principal)
CPT/HCPCS: 87624; 88142

== ENCOUNTER 2024-02-24 15:44 | Outpatient (REF) | payer MEDICAID, SELFPAY ==
[2024-02-25 03:02] LABS: CT PCR NOT DETECTED (Not Detect.); NG PCR NOT DETECTED (Not Detect.)
[2024-02-25 11:03] LABS: Bacterial Vaginosis PCR NEGATIVE (Negative); Candida Group PCR NOT DETECTED (Not Detect); Candida glab krusei PCR NOT DETECTED (Not Detect); Trichomonas vaginalis PCR DETECTED (Not Detect)
== END 2024-02-24 15:45 | disposition home or self-care (01) ==
LOC: HO.CHCLNP 15:44
PROVIDERS: Visit Provider Registered Nurse
DX: N94.9 Unspecified condition associated with female genital organs and menstrual cycle (principal)
CPT/HCPCS: 0352U; 0353U

== ENCOUNTER 2025-03-19 08:16 | Emergency (ER) | payer MEDICAID, SELFPAY ==
--- NOTE | ~2025-03-19 | XR_ITS ---
EXAMINATION: XR LUMBOSACRAL SPINE CLINICAL INFORMATION: pain, fall COMPARISON: None available. Correlation made with CT abdomen and pelvis 11/28/2021. TECHNIQUE: Three views of the lumbosacral spine. FINDINGS: There is a trace levoconvex scoliosis. There is a normal lordosis. There is no fracture, compression deformity, or suspicious bone lesion. There is a 3 mm degenerative appearing retrolisthesis of L2 on L3. Alignment is otherwise anatomic. Severe disc degeneration focally at T11-12 and T12-L1 with sclerosis of the endplates. Disc spaces otherwise grossly preserved. Facets are normally aligned bilaterally. Minimal degenerative facet changes L4-S1. The sacrum and SI joints appear normal. Anastomotic suture lines overlie the epigastric region. Cholecystectomy clips are present. No soft tissue abnormalities. XR/XR lumbar spine 2-3V IMPRESSION: 1. No acute bony abnormalities of the lumbar spine. 2. Degenerative disc disease predominantly at T11-T12 and T12-L1. Electronically signed by: Preston Fischer MD 03/19/2025 09:04 AM EDT
[2025-03-19 08:20] VITALS: BP 126/81; PULSE 109; RESP 20; TEMP 36.7; O2SAT 99; BMI 47.3
--- NOTE | 2025-03-19 08:22 | ED_ITS ---
HPI - Extremity Problem General Chief complaint: General Medical Stated complaint: HIP AND GROIN PAIN Time Seen by Provider: 03/19/25 11:54 Source: patient Mode of arrival: ambulatory Limitations: no limitations History of Present Illness ED Provider: Yvette Plunkett PA-C HPI Narrative: Patient is a 49 year old female with past medical history of back pain, GERD, s/p gastric bypass, EtOH dependence, and depression presenting to ER on 03/19 with chief complaint of lower back pain and right hip pain with associated numbness/tingling shooting down the back of her right leg. She recalls an i nciting injury 6 months ago where she fell and her pain has gradually worsened since her fall. She saw [facility] urgent care recently and was told X Rays of her hips were normal and was prescribed cyclobenzaprine with minimal benefit. Patient states that she is now out of her flexeril. Ibuprofen does temporarily relieve her pain. She states the lower back pain radiates to her right hip into her right groin. She has no history of kidney stones. She denies fevers, chills, saddle anesthesia, incontinence, chest pain, shortness of breath, genitourinary symptoms, or any other associated symptoms. Associated symptoms: denies other symptoms Related Data Home Medications ?Medication ?Instructions ?Recorded ?Confirmed bupropion HCl 150 mg tablet,12 hr 150 mg PO DAILY 11/1112/09/21 sustained-release cholecalciferol (vitamin D3) 50 1 tab PO DAILY 2 12/09/21 mcg (2,000 unit) tablet (Vitamin D3) fluoxetine 40 mg capsule 1 cap PO QAM 12/04/21 sucralfate 1 gram tablet 1 tab PO BEDTIME 12/04/21 pantoprazole 40 mg tablet,delayed 1 tab PO BID 2 12/09/21 release Previous Rx's ?Medication ?Instructions ?Recorded zinc gluconate 50 mg tablet 50 mg PO DAILY #30 tabs cyanocobalamin (vitamin B-12) 500 500 mcg PO DAILY #90 tabs 09/14/22 mcg tablet ofloxacin 0.3 % eye drops See Rx Instructions ophthalm ic 11/22/22 (eye) .COMPLEX #10 mL cyclobenzaprine 5 mg tablet 5 mg PO TID PRN muscle spa sm 7 03/19/25 days #21 tabs prednisone 20 mg tablet See Rx Instructions .Route 0 03/19/25 .COMPLEX 9 days #18 tabs Allergies Allergy/AdvReac Type Severity Reaction Status Date / Time No Known Allergies (No Known Allergy Verified 03/19/25 08:22 Allergies*) Review of Systems Constitutional: Constitutional: Reports no additional constitutional complaints, Denies chills, Denies fever(s) and Denies night sweats Eyes: Eyes: Reports no additional eye complaints, Denies blurry vision, Denies change in vision, Denies diplopia, Denies eye discharge, Denies loss of vision and Denies eye pain ENT: Denies dizziness Cardiovascular: Cardiovascular: Reports no additional cardiovascular complaints, Denies chest pain, Denies lightheadedness, Denies Loss of Consciousness and Denies dyspnea Respiratory: Respiratory: Reports no additional respiratory complaints and Denies dyspnea Gastrointestinal: Gastrointestinal: Reports no additional gastrointestinal complaints, Denies abdominal pain, Denies melena, Denies hematochezia, Denies change in bowel habits and Denies change in stool character Genitourinary: Genitourinary: Denies hematuria, Denies urinary frequency, Denies dysuria, Denies urinary incontinence, Denies urinary hesitancy and Denies urinary urgency Musculoskeletal: Musculoskeletal: Reports no additional musculoskeletal complaints, Reports back pain, Denies numbness and Denies tingling Neurologic: Denies dizziness, Denies loss of vision, Denies numbness and Denies tingling Psychiatric: Psychiatric: Reports no additional psychiatric complaints Endocrine: Endocrine: Reports no additional endocrine complaints Hematologic/Lymphatic: Hematologic/Lymphatic: Reports no additional hematologic/lymphatic complaints Allergic/Immunologic: Allergic/Immunologic: Reports no additional allergic/immunologic complaints [facility] Past Medical History Attestation statement: The following information was validated with the patient. Source: old records reviewed and nursing notes reviewed Medical History Acquired gastric fistula Depression Anxiety Vitamin D deficiency Hx of esophagitis GERD (gastroesophageal reflux disease) Cervical radiculopathy Surgical History Hx of gastric bypass Hx of section Hx of tubal ligation History of esophagogastroduodenoscopy (EGD) Hx of cholecystectomy Family History Family History Mother Diabetes Thyroid condition Mental health disorder Fibromyalgia Father COPD (chronic obstructive pulmonary disease) Hypertension Sister Kamaljit encephalopathy Brother Schizo affective schizophrenia Thyroid condition Brother Graves disease Heart problem Brother No problems noted. Daughter GERD (gastroesophageal reflux disease) Son No problems noted. Son GERD (gastroesophageal reflux disease) Asthma Social History Social History Alcohol intake: former Patient Tobacco Use Status: Current everyday Tobacco user Tobacco use type: Cigarette Cigarettes Per Day: 4 Advance Directives: No Advance Directives Information Provided: Yes Do you have a plan to hurt others: No Plan Physical Exam Vital Signs: Vital Signs: Last Vital Signs Temp 97.9 F 03/19/25 12:25 Pulse 83 03/19/25 12:25 Resp 18 03/19/25 12:25 BP 106/67 03/19/25 12:25 Pulse Ox 97 03/19/25 12:25 O2 Del Method Room Air 03/19/25 12:25 BMI result Body Mass Index 47.3 Const: General: cooperative, no acute distress, alert and awake Nutritional Appearance: well nourished Orientation/consciousness: patient oriented x3 HEENT: Head: Yes normal to inspection and Yes atraumatic Ears: hearing grossly normal bilaterally and external ears normal General nose exam: Normal external nose present, no nasal discharge noted and no epistaxis Face and sinus: Yes normal facial exam, No abrasion and No laceration Mouth: Normal oral and palatal mucosa present, no drooling and no muffled voice Eyes: General: appearance normal, both eyes and all related structures Periorbital: periorbital findings normal Eyelids: Yes eyelids normal Conjunctivae: conjunctivae normal Pupils: Equal, round and reactive pupils present EOM: EOMs intact bilaterally Neck: Neck: Yes normal visual inspection, Yes full ROM and Yes no lymphadenopathy Resp: Effort & Inspection: normal respiratory effort and able to speak in complete sentences Back/Spine/Pelvis: Cervical Spine: cervical ROM normal Neuro: General: patient oriented x3, moves all extremities and CN's II-XI intact bilaterally Cranial nerves: Yes Equal, round and reactive pupils present Cognition (Neuro): normal cognition Extrem: General: Yes normal to inspection, Yes full ROM and Yes capillary refill normal Psych: Appearance: grossly normal Mental Status: mental status grossly normal Affect: normal affect Attitude: cooperative Thought process: Normal thought process present Thought content: Normal thought content present Insight: Good insight present (Psych) Course Course Course Narrative: 49 female with PMH of ETOH, depression, obesity, s/p gastric bypass, GERD here with c/o bilateral hip pain radiating into the groin s/p fall with injury to lower back. No numbness, weakness, no b/b incontinence, no saddle anesthesia. She notes pain goes into the lower legs as well. Had recent hip xrays at urgent care. At this time will obtain xray of lumbar spine. this is a RAPID medical screening exam the rest of the history and physical exam is to be done by the main provider. ELLI 03/19/25 823am Medical Decision Making Medical Decision Making MDM Narrative: Patient is a 49 year old female with past medical history of back pain, GERD, s/p gastric bypass, EtOH dependence, and depression presenting to ER on 03/19 with chief complaint of lower back pain and right hip pain with associated numbness/tingling shooting down the back of her right leg. Patient's physical exam was unremarkable. Patient's lumbar spine x-ray showed evidence of disc dis ease. I explained my physical exam findings as well as all test results to the patient. I answered all questions asked by the patient. I stressed the importance of the patient taking her medication as directed (either prescribed or as the over the counter packaging recommends). I stressed the importance of the patient following up with her primary care provider and a member service specialist. I stressed the importance of the patient returning to the emergency department immediately if her symptoms were to worsen or if she were to develop any dizziness, shortness of breath, difficulty breathing, chest pain, blurry vision, loss of vision, nausea, vomiting, abdominal pain, fever, chills, back pain, or any other complaints. Patient verbalized agreement and understanding with this treatment plan and discharge. Differential Diagnosis Differential Diagnoses: The differential diagnosis associated with the presentation includes Disc disease Back pain Admission/Observation Consideration of admission/observation: Escalation of care including admission/observation considered Patient would have been admitted to the hospital had her work up had any findings where hospital admission was appropriate and her clinical presentation warranted hospital admission. Independent Interpretation I performed an independent interpretation of an: Plain X-Ray Interpretation: My interpretation is in agreement with the radiologist's impression of this imaging study. EXAMINATION: XR LUMBOSACRAL SPINE CLINICAL INFORMATION: pain, fall COMPARISON: None available. Correlation made with CT abdomen and pelvis 11/28/2021. TECHNIQUE: Three views of the lumbosacral spine. FINDINGS: There is a trace levoconvex scoliosis. There is a normal lordosis. There is no fracture, compression deformity, or suspicious bone lesion. There is a 3 mm degenerative appearing retrolisthesis of L2 on L3. Alignment is otherwise anatomic. Severe disc degeneration focally at T11-12 and T12-L1 with sclerosis of the endplates. Disc spaces otherwise grossly preserved. Facets are normally aligned bilaterally. Minimal degenerative facet changes L4- S1. The sacrum and SI joints appear normal. Anastomotic suture lines overlie the epigastric region. Cholecystectomy clips are present. No soft tissue abnormalities. XR/XR lumbar spine 2-3V IMPRESSION: 1. No acute bony abnormalities of the lumbar spine. 2. Degenerative disc disease predominantly at T11-T12 and T12-L1. Electronically signed by: Preston Fischer MD 03/19/2025 09:04 AM EDT RP Dictated By: Preston Fischer MD Signed By: Electronically signed by Preston Fischer MD 03/19/25 0904 Radiology Impression Discussion of test interpretation with radiology: I have reviewed the radiologist's reading. Prescription Management I considered prescription management with: Pain Medication (Patient prescribed pain medication) Discharge Plan Discharge Clinical Impression: Back pain Patient Disposition: Home, Self-Care Instructions: Back Pain (ED) Additional Instructions: Follow up with a primary care provider and a member service specialist. Return to the emergency department immediately if your symptoms worsen or if you develop any numbness, tingling, dizziness, shortness of breath, difficulty breathing, chest pain, blurry vision, loss of vision, nausea, vomiting, abdominal pain, fever, chills, back pain, or any other complaints. If you do not have a primary care provider - call any of the below numbers to establish and follow up with a primary care provider. [facility] ([place]) [phone] [place] [address], [address] [facility] ([address] [place]) [phone] [place] [address], [address] [facility], [address] [facility] ([address] [place]) [phone] [place] [address], [address] [facility], [address] [facility] ([place]) [phone] [place] [address] [address] [facility], [address] [facility] Family Medicine [phone] [address] [facility], [address] Please see the information below about our Patient Portal. If you are not yet enrolled in the [facility] Patient Portal, you will receive an enrollment email invitation following your visit to any [facility] setting. You may also self-enroll in the Patient Portal by visiting our website: [email or web address] The following information is required to access the Patient Portal: - Your [facility] Medical Record Number - Your personal home email address (must match what is in your electronic medical record, Registration staff can assist with this) - Name - Date of Capabilities of the Patient Portal: - Message some providers - View upcoming appointments - Access your health summary, medical history, and visit history - View current conditions and allergies - View procedure and lab results - View your medications, including guidelines, side effects, and precautions - Complete pre-appointment questionnaires requested by your provider - Ready summary reports of your office visits and procedures To access the Patient Portal Mobile Kt, follow these directions: - Search Copyright Agent in the Kt Store or Camera Service [employer] Integration Store - Download the Kt - Search for [facility] - Enter your login/password Prescriptions: New prednisone 20 mg tablet See Rx Instructions .ROUTE .COMPLEX 9 Days Qty: 18 0RF Rx Instructions: 20 mg orally, Take 3 tablets for 3 days THEN; Take 2 tablets for 3 days THEN; Take 1 tablet for 3 days cyclobenzaprine 5 mg tablet 5 mg PO TID PRN (Reason: muscle spasm) 7 Days Qty: 21 0RF No Action zinc gluconate 50 mg tablet 50 mg PO DAILY Qty: 30 6RF cyanocobalamin (vitamin B-12) 500 mcg tablet 500 mcg PO DAILY Qty: 90 2RF fluoxetine 40 mg capsule 1 cap PO QAM bupropion HCl 150 mg tablet sustained-release 12 hr 150 mg PO DAILY sucralfate 1 gram tablet 1 tab PO BEDTIME cholecalciferol (vitamin D3) [Vitamin D3] 50 mcg (2,000 unit) tablet 1 tab PO DAILY pantoprazole 40 mg tablet,delayed release (DR/EC) 1 tab PO BID ofloxacin 0.3 % drops See Rx Instructions .ROUTE .COMPLEX Qty: 10 0RF Rx Instructions: put 1-2 drps into affected eye(s) every 2-4 h x 2 days, then 1-2 drps 4 times/day days 3-7 Referrals: [facility] [Provider Group, Neurosurgery] Referral Note: Call to establish and follow up with a member service specialist. [facility] [Primary Care Provider, Medical] Interventions: ED Discharge Assessment Last Done: 03/19/25 12:25 Discharge Date/Time: 03/19/25 12:26 Print Language: Australian
[2025-03-19 12:23] VITALS: BP 106/67; PULSE 83; RESP 18; O2SAT 97
--- NOTE | 2025-03-19 12:24 | PC.NURSE ---
PT WAS SEEN BY PROVIDER AND PLACED UP FOR DISCHARGE.
[2025-03-19 12:25] VITALS: BP 106/67; PULSE 83; RESP 18; TEMP 36.6; O2SAT 97
--- OUTSIDE RECORDS SUMMARY | 2025-03-19 13:05 | XMS_ITS | Clinical Summary ---
Author Organization [facility] Address [address] [place] [address] Care Team Providers Care Soccer Player Name Role Phone Gloria Branham CLERICAL SECRETARY Primary Care Provider [phone] Source Comments PLEASE NOTE, if this patient is a minor, it may be UNLAWFUL to discuss sensitive information that is contained in these records (such as FAMILY PLANNING, MENTAL HEALTH or SUBSTANCE ABUSE) with the minor patient's parent or other person without the patient's specific authorization.[facility] Allergies No known active allergies Medications FLUoxetine (PROZAC) 20 mg capsuleIndicati ons:Anxiety and depression TAKE 1 CAPSULE BY MOUTH EVERY DAY IN THE MORNING 30 Capsule 1 09/03/2020 Active Active Problems Problem Noted Date Diagnosed Date Bipolar 1 disorder ([facility]) 10/16/2016 Overview (10/16/2016): Diagnosis 1990- Admitted for 1996 PTSD (post-traumatic stress disorder) 09/22/2016 Anxiety and depression 09/22/2016 Cigarette nicotine dependence without complicati on 09/22/2016 Immunizations Immunization Administration Dates Next Due INFLUENZA, SEASONAL, INJECTABLE 09/22/2016 PNEUMOCOCCAL POLYSACCHARIDE PPV23 (Pneumovax 23) 12/12/2017 TDAP 12/12/2017 Family History Medical History Relation Name Comments Hypertension Father High Cholesterol Mother Relation Name Status Comments Father Mother Social History Tobacco Use Types Packs/Day Years Used Date Smoking Tobacco: Every Day Smokeless Tobacco: Never Alcohol Use Standard Drinks/Week Comments Yes 0 (1 standard drink = 0.6 oz pur e alcohol) weekends Social Connections Answer Date Recorded Social Connections and Isolation 0 05/04/2019 Financial Resource Strain Answer Date R ecorded Financial Resource Strain 0 2018 Stress Answer Date Recorded Stress 0 05/04/2019 Physical Activity Answer Date Recorded Physical Activity 0 05/04/2019 Food Insecurity Answer Date Recorded Food 0 05/04/2019 Transportation Needs Answer Date Record ed Transportation 0 05/04/2019 Housing Stability Answer Date Recorded Housing 0 05/04/2019 Safety and Environment Answer Date Randy rded Safety 0 05/04/2019 Utilities Answer Date Recorded Utilities 0 05/04/2019 Employment Answer Date Recorded Employment 0 05/04/2019 Comments No Sex and Gender Information Value Date Recorded Sex Assigned at Female 12/12/2017 11:50 AM PDT Legal Sex Female 7:12 AM PDT Gender Identity Female 12/12/2017 11:50 AM PDT Sexual Orientation Straight 12/12/2017 11 :50 AM PDT Last Filed Vital Signs Vital Sign Reading Time Taken Comments Blood Pressure 124/74 04/03/2018 1:01 PM EDT Pulse 72 04/03/2018 1:01 PM EDT Temperature 36.9 C (98.5 F) 04/03/2018 1:01 PM EDT Respiratory Rate 16 04/03/2018 1:01 PM EDT Oxygen Saturation - - Inhaled Oxygen Concentration - - Weight 86.2 kg (190 lb) 04/03/2018 1:01 PM EDT Height 162.6 cm (5' 4 ) 12/12/2017 9:15 AM EDT Body Mass Index 32.61 12/12/2017 9:15 AM EDT Plan of Treatment Not on file Insurance [employer] Care Teams Soccer Player Relationship Specialty Start Date End Date Gloria Branham FNP [facility] [place] [address] PCP - General Family Medicine, PRECISION FARMING SPECIALIST 09/20/16
--- OUTSIDE RECORDS SUMMARY | 2025-03-19 13:05 | XMS_ITS | Clinical Summary ---
Demographics Address [address] [facility] [address] [place] [address] Mobile Phone Work Phone Home Phone Email Address Preferred Language en Marital Status Congregational Affiliation Unknown Race Other Race Ethnic Group Unknown Author Organization [employer] Address [address] [place] [address] [address] [place] [address] Care Team Providers Care Body Die Maker Name Role Phone Tangela Rubio Primary Care Provider [phone] Allergies No known active allergies Medications buPROPion SR (Wellbutrin SR) 150 MG 12 hr tablet Take 150 mg by mouth 2 times daily. 04/01/20 23 Active cloNIDine (Catapres) 0.1 MG tablet Take 0.1 mg by mouth if needed in the morning, at noon, and at bedtime. 05/15/20 23 Active escitalopram (Lexapro) 20 MG tablet Take 20 mg by mouth in the morning. 05/09/20 23 Active naltrexone (Depade) 50 MG tablet TAKE 1 TABLET BY MOUTH ONCE A DAY DIRECTED FOR CRAVINGS 03/02/20 23 Active prazosin (Minipress) 2 MG capsule TAKE 1 CAPSULE BY MOUTH EVERYDAY AT BEDTIME 03/04/20 23 Active traZODone (Desyrel) 50 MG tablet Take 50-100 mg by mouth at bedtime. 04/30/20 23 Active nicotine (Nicoderm CQ) 14 MG/24HR patch After completion of 21mg/day patch: Apply 1 patch on the skin (one) time each day at the same time x 2 weeks. 14 patch 07/06/20 23 Active nicotine (Nicoderm CQ) 7 MG/24HR patch After completion of 14mg/day patch: Apply 1 patch on the skin (one) time each day at the same time x 2 weeks. 14 patch 07/06/20 23 Active nicotine polacrilex (Nicotine Mini) 4 MG lozenge Weeks 1-6: 1 lozenge every 1-2 hrs (max 5 lozenges every 6 hrs; 20 lozenges/day); Weeks 7-9: 1 lozenge every 2-4 hrs Weeks 10-12: 1 lozenge every 4-8 hrs 2 lozenge 2 07/06/20 23 Active valACYclovir (Valtrex) 1 g tablet TAKE 1 TABLET BY MOUTH EVERY DAY FOR 5 DAYS as needed for outbreaks 15 tablet 3 08/19/20 23 Active nicotine (Nicoderm, Step 1) 21 MG/24HR patch APPLY 1 PATCH ON THE SKIN (ONE) TIME EACH DAY AT THE SAME TIME X 6 WEEKS. 42 patch 09/19/19 24 Active cholecalciferol (D3) 50 MCG (2000 UT) tablet TAKE 1 TABLET BY MOUTH EVERY DAY 90 tablet 1 11/16/19 25 Active omeprazole (PriLOSEC) [address] capsuleIndicati ons:Gastroesoph ageal reflux disease, unspecified whether esophagitis present TAKE 1 CAPSULE BY MOUTH EVERY DAY BEFORE A MEAL 90 capsule 1 12/27/19 25 Active cyanocobalamin (Vitamin B-12) 500 MCG tabletIndicatio ns:Healthcare maintenance TAKE 1 TABLET BY MOUTH EVERY DAY IN THE MORNING 90 tablet 02/27/20 25 Active cyanocobalamin (Vitamin B-12) 500 MCG tabletIndicatio ns:Healthcare maintenance TAKE 1 TABLET BY MOUTH EVERY DAY IN THE MORNING 90 tablet 1 05/26/20 24 025 Discontinued Active Problems Problem Noted Date Diagnosed Date HSV-2 (herpes simplex virus 2) infection 023 Overview (08/21/2023): -History of genital herpes -Continues with episodic tx PRN: Valtrex 1g daily x 5 days Assessment & Plan (08/21/2023 2:36 PM EST): Refill sent to pharmacy Healthcare maintenance 08/21/2023 Overview (08/21/2023): Pap: completed Aug 2023 Mammogram: pt interested in completing next year. Plan to order at subsequent visit. Gastroesophageal reflux disease 06/08/2023 Vitamin D deficiency 06/08/2023 Positive RPR test 06/08/2023 Cocaine use disorder 06/08/2023 Overview (06/08/2023): History of cocaine use disorder, currently in recovery Continue following with mental health team N Alcohol use disorder 06/08/2023 Overview (06/08/2023): Currently in recovery Continue with behavioral health team and naltrexone 50mg daily Bipolar 1 disorder 10/16/2016 Overview (06/08/2023): Diagnosis 1990- Admitted for 1996 Anxiety and depression 09/22/2016 Cigarette nicotine dependence without complicati on 09/22/2016 Overview (07/09/2023): Currently smoking approx 10 cigg/day. Duration: x 31 years Highest quantity smoked/day: 2 packs Approx 30 pack year history of cigg smoking Encouraged smoking cessation resources such as pharmacomtherapy, [facility] smoking cessation group, and [facility] pharmacy smoking cessation clinic Assessment & Plan (07/09/2023 8:47 AM EDT): Plan to start NRT patches and lozenges Assessment & Plan (06/08/2023 5:37 PM EDT): Plan: Pt interested in monotherapy of Nicotrol inhalers. Reviewed med use and safety Encounters Date Type Department Care Team Description 02/25/2025 Refill [facility] [address] [place] [address] Tangela Rubio FNP Healthcare maintenance 02/21/2025 Orders Only [facility] [address] [place], [place] [phone] Provider, MD Jasbir Abnormal finding on breast imaging (Primary Dx) 02/20/2025 Telephone [facility] [address] [place], [place] [phone] Tangela Rubio FNP No Show (Pt no show for sick on site ) 02/19/2025 Telephone [facility] [address] [place], [place] [phone] Tangela Rubio FNP Nurse Triage 12/26/2024 Refill [facility] [address] [place] [address] Tangela Rubio, PRINCESS Gastroesophageal reflux disease, unspecified whether esophagitis present from Last 3 Months Immunizations Immunization Administration Dates Next Due Hep B, adult 08/19/2023 Influenza injectable quadrivalent preservative f ree 07/07/2021,08/29/2019 Influenza, IIV3, injectable 09/22/2016 Pfizer Covid-19 Vaccine 12+ 02/04/2021, 1 Pneumococcal Polysaccharide PPSV23 12/12/2017 Tdap 08/29/2019,12/12/2017 Family History Medical History Relation Name Comments Alcohol abuse Brother 1 Calvin Yuli Mental illness Brother 2 Hommyl Cedeno Mental illness Daughter Mariama Roldan COPD Father Reji Yuli Hypertension Father Reji Yuli Alcohol abuse Mother Tom Paul Arthritis Mother Tom Paul Depression Mother Tom Paul Mental illness Mother Tom Paul Mental illness Son Marcelo Roldan Relation Name Status Comments Brother 1 Calvin Yuli Brother 2 Hommyl Cedeno Daughter Mariama Yuli Father Reji Yuli Mother Tom Humberto Son Marcelo Roldan Social History Tobacco Use Types Packs/Day Years Used Date Smoking Tobacco: Every Day Cigarettes 0.5 15 Smokeless Tobacco: Never Tobacco Cessation:Ready to Q uit: Not Asked; Counseling Given: Not Answered Alcohol Use Standard Drinks/Week Comments Not Currently 0 (1 standard drink = 0.6 oz pur e alcohol) Depression Answer Date Recorded Patient Health Questionnaire-9 Score 12 06/08/2023 Housing Stability Answer Date Recorded What is your housing situation today? I have chuy castellano 05/28/[address] you li ve. Do you have problems with any of the following? None of the above 05/28/2024 Food Insecurity Answer Date Recorded Within the past 12 months, y ou worried that your food would run out before you got money to buy more: Never True 05/28/2024 Within the past 12 months,th e food you bought just didn't last and you didn't have enough money to get more: Never True Transportation Answer Date Recorded In the past 12 months, has l ack of transportation kept you from medical appts, meetings, work or from getting things needed for daily living? No 05/28/2024 Utilities Answer Date Recorded In the past 12 months, has t he electric, gas, oil or water company threatened to shut off services in your home? No 05/28/2024 Depression Answer Date Recorded Patient Health Questionnaire-2 Score 3 06/08/2023 Internet Access Answer Date Recorded Internet Access Q1 Yes 05/28/2024 Internet Access Q2 Not on file 05/28/2024 Comments Unknown Sex and Gender Information Value Date Recorded Sex Assigned at Female 07/12/2022 10:17 AM EDT Legal Sex Female 10:17 AM EDT Gender Identity Female 06/08/2023 5:28 PM EDT Sexual Orientation Choose not to disclose 2021 10:17 AM EDT Last Filed Vital Signs Vital Sign Reading Time Taken Comments Blood Pressure 132/77 02/24/2024 11:13 AM EDT Pulse 62 02/24/2024 11:13 AM EDT Temperature 37.1 C (98.7 F) 02/24/2024 11:13 AM EDT Respiratory Rate 20 02/24/2024 11:13 AM EDT Oxygen Saturation 96% 02/24/2024 11:13 AM EDT Inhaled Oxygen Concentration - - Weight 115 kg (252 lb 9.6 oz) 02/24/2024 11:13 A M EDT Height 157.5 cm (5' 2 ) 02/24/2024 11:13 AM EDT Body Mass Index 46.2 02/24/2024 11:13 AM EDT Plan of Treatment Health Maintenance Due Date Last Done Comments CT Colonography 1977 Colonoscopy 1977 Colorectal Cancer Screening 1977 FIT DNA/Cologuard 1977 FIT 1977 FOBT 1977 Sigmoidoscopy 1977 Disability Screening 1977 Alcohol/Substance Use Screening 1989 Family Planning (PISQ) 1992 Pneumococcal Vaccine: Pediatrics (0 to 5 Years) and At-Risk Patients (6 to 49) Years (2 of 2 - PCV) 12/12/2018 12/12/2017 Hepatitis B Vaccines (2 of 3 - 19+ 3-dose series) 09/16/2023 08/19/2023 Depression Monitoring 12/07/2023 06/08/2023, 023 COVID-19 Vaccine ( season) 2024 10/06/2021, 02/04/2021, 01/14/2021 Diagnostic Breast Imaging 03/30/2025 02/28/2025, 07/2025 Influenza Vaccine (#1) 2025 , 08/29/2019, 09/22/2016, Additional history exists SDOH Screening 05/28/2025 05/28/2024 Tobacco Screening 05/28/2025 05/28/2024 Zoster Vaccines (1 of 2) 11/12/2027 Lipid Panel 07/08/2028 07/08/2023, 02/11, 07/07/2021, Additional history exists Cervical Cancer Screening 08/19/2028 HPV/Cotest 08/19/2028 08/19/2023 Pap Smear 08/19/2028 08/19/2023 DTaP/Tdap/Td Vaccines (3 - Td or Tdap) 08/29/2029 08/29/2019, 12/12/2017 RSV Patients and Patients Aged 60 years or older (1 - 1-dose 75+ series) 2052 HIV Screening Completed 07/08/2023, 06/13, 02/25/2020 Hepatitis C Screening Completed 07/08/2023, 021 HIB Vaccines Aged Out No longer eligi ble based on patient's age to complete this topic HPV Vaccines Aged Out No longer eligi ble based on patient's age to complete this topic Hepatitis A Vaccines Aged Out No long er eligible based on patient's age to complete this topic IPV Vaccines Aged Out No longer eligi ble based on patient's age to complete this topic Meningococcal B Vaccine Aged Out No l onger eligible based on patient's age to complete this topic Meningococcal Vaccine Aged Out No sisi cecelia eligible based on patient's age to complete this topic RSV under 20 months Aged Out No longe r eligible based on patient's age to complete this topic Rotavirus Vaccines Aged Out No longer eligible based on patient's age to complete this topic Procedures Procedure Name Priority Date/Time Associated Diagnosis Comments XR LUMBAR SPINE 2-3 VIEWS Routine 03/19/2025 8:40 AM EDT US BREAST DIAGNOSTIC BILATERAL LIMITED Routine 02/28/2025 Abnormal finding on breast imaging BI MAMMOGRAM DIAGNOSTIC TOMOSYNTHESIS BILATERAL Routine 02/28/2025 Abnormal finding on breast imaging HM MAMMOGRAPHY Routine 02/20/2025 2:58 PM EDT HPV MRNA E6/E7 REFLEX TO HPV 16, 18/45 Routine 08/19/2023 9:08 AM EST PAP SMEAR Routine 08/19/2023 9:08 AM EST HEPATITIS C VIRAL RNA, QUANTITATIVE, REAL-TIME PCR Routine 07/08/2023 9:36 AM EDT Healthcare maintenance HIV ANTIBODY/ANTIGEN ([place] DPH) Routine 07/08/2023 9:36 AM EDT LIPID PANEL, STANDARD Routine 07/08/2023 9:36 AM EDT Healthcare maintenance from Last 3 Months or Most Recently Relevant to Health Maintenance Results * XR Lumbar Spine 2-3 Views (03/19/2025 8:40 AM EDT) Anatomical Region Laterality Modality Spine, L-spine Radiographic Fide ging 03/19/2025 8:40 AM EDT Narrative 03/19/2025 9:07 AM EDT [place] [address] XRay Report Signed Patient: Catia Caldera MR#: [id number] : 1975 Acct:[id number] Age/Sex: 49 / F ADM Date: 03/19/25 Loc: HO.ED Attending Dr: Ordering Physician: Susana Moore DO Date of Service: 03/19/25 Procedure(s): XR lumbar spine 2-3V Accession Number(s): [id number] cc: Susana Moore DO; [facility] EXAMINATION: XR LUMBOSACRAL SPINE CLINICAL INFORMATION: pain, fall COMPARISON: None available. Correlation made with CT abdomen and pelvis 11/28/2021. TECHNIQUE: Three views of the lumbosacral spine. FINDINGS: There is a trace levoconvex scoliosis. There is a normal lordosis. There is no fracture, compression deformity, or suspicious bone lesion. There is a 3 mm degenerative appearing retrolisthesis of L2 on L3. Alignment is otherwise anatomic. Severe disc degeneration focally at T11-12 and T12-L1 with sclerosis of the endplates. Disc spaces otherwise grossly preserved. Facets are normally aligned bilaterally. Minimal degenerative facet changes L4-S1. The sacrum and SI joints appear normal. Anastomotic suture lines overlie the epigastric region. Cholecystectomy clips are present. No soft tissue abnormalities. XR/XR lumbar spine 2-3V IMPRESSION: 1. No acute bony abnormalities of the lumbar spine. 2. Degenerative disc disease predominantly at T11-T12 and T12-L1. Electronically signed by: Preston Fischer MD 03/19/2025 09:04 AM EDT Dictated By: Preston Fischer MD Signed By: <Electronically signed by Preston Fischer MD in OV> 03/19/25 0904 DD/ 0840 TD/TT: 03/19/25 0854 Business Banking Manager: Procedure Note Donotuseinterpreter, Image - 03/19/2025 [place] [address] XRay Report Signed Patient: Catia Caldera YMR#: [id number] : 1975Acct:[id number] Age/Sex: 49 / FADM Date: 03/19/25 Loc: HO.ED Attending Dr: Ordering Physician: Susana Moore DO Date of Service: 03/19/25 Procedure(s): XR lumbar spine 2-3V Accession Number(s): [id number] cc: Susana Moore DO; [facility] EXAMINATION: XR LUMBOSACRAL SPINE CLINICAL INFORMATION: pain, fall COMPARISON: None available. Correlation made with CT abdomen and pelvis 11/28/2021. TECHNIQUE: Three views of the lumbosacral spine. FINDINGS: There is a trace levoconvex scoliosis. There is a normal lordosis. There is no fracture, compression deformity, or suspicious bone lesion. There is a 3 mm degenerative appearing retrolisthesis of L2 on L3. Alignment is otherwise anatomic. Severe disc degeneration focally at T11-12 and T12-L1 with sclerosis of the endplates. Disc spaces otherwise grossly preserved. Facets are normally aligned bilaterally. Minimal degenerative facet changes L4-S1. The sacrum and SI joints appear normal. Anastomotic suture lines overlie the epigastric region. Cholecystectomy clips are present. No soft tissue abnormalities. XR/XR lumbar spine 2-3V IMPRESSION: 1. No acute bony abnormalities of the lumbar spine. 2. Degenerative disc disease predominantly at T11-T12 and T12-L1. Electronically signed by: Preston Fischer MD 03/19/2025 09:04 AM EDT RP Dictated By: Preston Fischer MD Signed By: <Electronically signed by Preston Fischer MD in OV> 03/19/25903 DD/ 9 TD/TT: 03/19/25 0854 Business Banking Manager: [facility] External Provider IMG XR PROCEDURES Edited Result - Final * US BREAST DIAGNOSTIC BILATERAL LIMITED (02/28/2025) Anatomical Region Laterality Modality Breast Bilateral Ultrasound Tangela Rubio INDUSTRIAL WASTE TREATMENT TECHNICIAN IMG US PROCEDURES Final Result * BI Mammogram Diagnostic Tomosynthesis Bilateral (02/28/2025) Anatomical Region Laterality Modality Breast Bilateral Mammography Tangela Rubio INDUSTRIAL WASTE TREATMENT TECHNICIAN IMG BI PROCEDURES Final Result * Hm Mammography (02/20/2025 2:58 PM EDT) Anatomical Region Laterality Modality Other Historical Provider HEALTH MAINTENANCE Final Result * HPV mRNA E6/E7 w/Reflex to HPV Genotypes 16, 18/45 (08/19/2023 9:08 AM EST) HPV nRNA E6/E7 Not Detected Not Detected [facility] Comment:Methodology: Transcr iption-Mediated AmplificationThis assay detects E6/E7 viral messenger RNA (mRNA) from 14high-risk HPV types (16,18,31,33,35,39,45,51,52,56,58,59,66,68).Cervical sources are required for HPV testing.If a vaginal source from a patient who has had atotal hysterectomy with removal of cervix wassubmitted, please contact the testing laboratoryfor alternative testing options.For additional information, please refer tohttp://education.[employer]ap[employer].ru/faq/QXN845k5(This link if provided for information/educational purposes only.)THIS TEST WAS PERFORMED AT:[facility] [place] [id number] ROWELL MD HPV mRNA E6/E7 TNP [facility] HPV 16 RNA TNP [facility] HPV 18/45 RNA [facility] 08/19/2023 9:08 AM EST 08/22/2023 8:50 AM EST Tangela SÁNCHEZ LAB CYTOLOGY ORDERABLES Final Result Performing Organization Address City/State/[facility] Co de Phone Number [facility] [address] [place] [phone] * Pap Smear (08/19/2023 9:08 AM EST) 08/19/2023 9:08 AM EST 08/22/2023 8:50 AM EST Narrative [facility] - 08/26/2023 9:58 AM EST ----- ------- Name: Catia Caldera Age/Sex: 47/F : 1975 Unit#: [id number] Attend Dr: Tangela Rubio Re08/19/23 Status: DEP REF Location: [facility] Disch: ----- ------- SPEC : [id number] RECD: 08/22/23 STATUS: RENE GUTIERREZ NUM: [id number] MINA: 08/19/23 [facility] DR: Tangela Rubio [facility] ENTERED: 08/23/23 SP TYPE: Pap Smr OT DR: ORDERED: Pap Smear Interpretation Satisfactory for evaluation. No endocervical cells seen. Microorganisms consistent with Trichomonas vaginalis. Negative for intraepithelial lesion or malignancy. HPV mRNA E6/E7: NOT DETECTED This assay detects E6/E7 viral messenger RNA (mRNA) from 14 high-risk HPV types (16, 18, 31, 33, 35, 39, 45, 51, 52, 56, 58, 59, 66, 68) HPV testing performed by [facility], [place], [place]. See reference laboratory portion of the EMR for entire report. Clinical Information LMP: Unknown date Previous PAP test: Unknown date/findings Material Received ThinPrep-Cervical ----- ------- Signed (signature on file) THONG Sage (ASC) 08/26/23 0958 ----- ------- END OF REPORT Tangela Rubio [facility] CYTOLOGY ORDERABLES Final Result [facility] [address] [place] [address] [phone] * HIV Ab/Ag (HARESH CURTIS) (07/08/2023 9:36 AM EDT) HIV AB/AG Nonreactive Nonreactive [facility] Comment:HIV-1 p24 Ag and/or HIV-1/HIV-2 Ab not detected.A test result that is nonreactive does not exclude thepossibility of exposure to or infection with HIV-1 and/orHIV-2. Nonreactive results in this assay for individualswith prior exposure to HIV-1 and/or HIV-2 may be due toantigen and antibody levels that are below the limit ofdetection of this assay.The [employer] HIV Ag/Ab Combo assay result andsupplemental assay results should be interpreted inconjunction with the patient's clinical presentation,history and other laboratory results. If the results areinconsistent with clinical evidence, additional testing issuggested to confirm the result. 07/08/2023 9:36 AM EDT 07/08/2023 2:46 PM EDT Tangela Rubio [facility] BLOOD ORDERABLES Final Res ult Performing Organization Address City/[facility]/ZIP Co de Phone Number [facility] [address] [place] [phone] * Hepatitis C Viral RNA, Quantitative, Real-Time PCR (07/08/2023 9:36 AM EDT) Hepatitis C Viral Load <15 NOT DETECTED NOT DETECTED IU/mL [facility] HCV Log PCR <1.18 NOT DETECTED NOT DETECTED Log IU/mL [facility] Comment:This test was perfor med using Real-Time Polymerase ChainReaction.Reportable Range: 15 IU/mL to 100,000,000 IU/mL(1.18 Log IU/mL to 8.00 Log IU/mL).The analytical performance characteristics of thisassay have been determined by [facility].The modifications have not been cleared or approved bythe FDA. This assay has been validated pursuant to theCLIA regulations and is used for clinical purposes.For more information on this test, go to:http://education.Sapato.ru/faq/NCW61q5(This link is being provided for informational/educational purposes only.)THIS TEST WAS PERFORMED AT:[facility] [place] [id number] ROWELL MD Blood 07/08/2023 9:36 AM EDT 07/08/2023 2:46 PM EDT us Tangela Rubio INDUSTRIAL WASTE TREATMENT TECHNICIAN LAB BLOOD ORDERABLES Final Res ult [facility] [address] [place] [address] [phone] * (ABNORMAL) Lipid Panel, Standard (07/08/2023 9:36 AM EDT) Triglycerides 106 <150 mg/dL [facility] Comment:Desirable Triglyceri de: less than 150 mg/dLBorderline High Triglyceride 150-199 mg/dLHigh Triglyceride: 200-499 mg/dLVery High Triglyceride: greater than or equal to 5OO mg/dL Cholesterol 199 <200 mg/dL [facility] Comment:Desirable Cholestero l: less than 200 mg/dLBorderline High Cholesterol: 200-239 mg/dLHigh Cholesterol: greater than 239 mg/dL LDL Cholesterol Calculated 125(H) <100 mg/dL [facility] Comment:Desirable LDL: less than 100 mg/dLNear Optimal/Above Optimal LDL: 110- 129 mg/dLBorderline High LDL: 130-159 mg/dLHigh LDL: 160-189 mg/dLVery High LDL: greater than or equal to 190 mg/dL HDL Cholesterol 53 >40 mg/dL [facility] Comment:Desirable HDL: great er than 40 mg/dL Note: This HDL assay may give artificially low results in patients with liver disease. Blood Venous blood specimen / Unknown 07/08/2023 9:36 AM EDT 07/08/2023 2:46 PM EDT Tangela SÁNCHEZ LAB BLOOD ORDERABLES Final Res ult [facility] [address] [place] [address] [phone] from Last 3 Months or Most Recently Relevant to Health Maintenance Insurance * Guarantor: Catia Caldera Account Type Relation to Patient Date of Phone Billing Address Personal/Family Self [address] [place] [address] [employer] * Guarantor: Catia Caldera Account Type Relation to Patient Date of Phone Billing Address Personal/Family Self [address] [place] [address] * Guarantor: Catia Caldera Account Type Relation to Patient Date of Phone Billing Address Personal/Family Self [address] [place] [address] * Guarantor: Catia Caldera Account Type Relation to Patient Date of Phone Billing Address Personal/Family Self [address] [place] [address] Care Teams Body Die Maker Relationship Specialty Start Date End Date Tangela Rubio FNP [address] [place] [address] PCP - General Family Medicine 05/06/22
--- OUTSIDE RECORDS SUMMARY | 2025-03-19 13:05 | XMS_ITS | Clinical Summary ---
Demographics Address [address] [place] [address] Home Phone Home Phone Preferred Language en Marital Status Single Uatsdin Affiliation Unknown Race Unknown Ethnic Group or Author Organization [facility] Address [address] [place] [address] Care Team Providers Care Typesetting Supervisor Name Role Phone Gloria Branham PRINCESS Primary Care Provider Social History Tobacco Use Types Packs/Day Years Used Date Smoking Tobacco: Never Assessed Comments Unknown Sex and Gender Information Value Date Recorded Sex Assigned at Not on file Legal Sex Female 5:05 AM EST Gender Identity Not on file Sexual Orientation Not on file Plan of Treatment Health Maintenance Due Date Last Done Comments Breast Cancer Screening 1977 DTaP,Tdap,and Td Vaccines (1 - Tdap) 1996 Hepatitis B Vaccines (1 of 3 - 19+ 3-dose series) 1996 Cervical Cancer Screening: P ap Smear 1998 COVID-19 Vaccine (2023-2 5 season) 2024 Influenza Vaccine (#1) 2025 HIB Vaccines Aged Out No longer eligi [...] on patient's age to complete this topic MMR Vaccines Aged Out No longer eligi ble based on patient's age to complete this topic Meningococcal ACWY Vaccine Aged Out N o longer eligible based on patient's age to complete this topic Meningococcal B Vaccine Aged Out No l onger eligible based on patient's age to complete this topic Pneumococcal Vaccine: Pediat rics (0 to 5 Years) and At-Risk Patients (6 to 49 Years) Aged Out No longer eligible b ased on patient's age to complete this topic RSV Immunization Patients Un yeny 20 months Aged Out No longer eligible b ased on patient's age to complete this topic Varicella Vaccines Aged Out No longer eligible based on patient's age to complete this topic Care Teams Typesetting Supervisor Relationship Specialty Start Date End Date Gloria Branham FNP [address] [place] [phone] PCP - General Internal Medicine 04/17/19
== END 2025-03-19 12:26 | disposition home or self-care (01) ==
LOC: HO.ED 12:16
PROVIDERS: Emergency Provider Emergency Medicine Emergency Medical Services
DX: M54.50 Low back pain, unspecified (principal)
CPT/HCPCS: 72100; 99282; 99283

== ENCOUNTER → 2025-03-19 08:23 | Outpatient (BNV) | payer MEDICAID, SELFPAY | PROVIDERS: Visit Provider Radiology Diagnostic Radiology | DX: M51.362 Other intervertebral disc degeneration, lumbar region with discogenic back pain and lower extremity pain (principal) | CPT/HCPCS: 72100 ==

== ENCOUNTER → 2025-04-27 14:18 | Outpatient (BNV) | payer MEDICAID, SELFPAY | PROVIDERS: PCP Registered Nurse; Visit Provider Student in an Organized Health Care Education/Training Program | DX: M47.816 Spondylosis without myelopathy or radiculopathy, lumbar region (principal); M54.6 Pain in thoracic spine; D18.09 Hemangioma of other sites | CPT/HCPCS: 72146; 72148 ==

== ENCOUNTER 2025-04-27 14:19 | Outpatient (REF) | payer MEDICAID, SELFPAY ==
--- NOTE | ~2025-04-27 | MR_ITS ---
CLINICAL HISTORY: severe thoracic spine MR thoracic spine without gadolinium Comparison: None provided Findings: Normal alignment. No acute fracture or pathologic bone lesion. Thoracic cord normal size and signal. No significant spinal canal or foraminal stenoses. Mild multilevel spondylosis of the thoracic spine with degenerative disc desiccation, disc height loss, small posterior disc bulges, and osteophytosis. Paraspinous musculature intact. IMPRESSION: No acute findings. Mild multilevel spondylosis of the thoracic spine without significant spinal canal or neural foraminal narrowings. This document has been electronically signed by: Carl Salguero MD on 04/29/2025 22:52:42
--- NOTE | ~2025-04-27 | MR_ITS ---
CLINICAL HISTORY: severe thoracic lumbar spine MR lumbar spine without gadolinium Comparison: CR/SR - XR LUMBAR SPINE 2-3 VIEWS - 03/19/25 08:49 EDT Findings: No scoliosis or spondylolisthesis. No acute fracture or pathologic bone lesion. Cauda equina and conus medullaris within normal limits. Mild multilevel spondylosis of the lumbar spine with degenerative disc desiccation, disc height loss, posterior disc bulges, facet arthropathy and ligamentum flavum thickening causing [id number] spinal canal and neural foraminal narrowings, most notably at L2-L3, and L3-L4 levels. L3 benign vertebral body hemangioma. Paraspinous musculature intact. IMPRESSION: No acute findings. Yeto-[id number] multilevel spondylosis of the lumbar spine, most notably at L2-L3, and L3-L4 levels with [id number] spinal canal and neural foraminal narrowings. L3 benign vertebral body hemangioma. This document has been electronically signed by: Carl Salguero MD on 04/29/2025 22:57:45
== END 2025-04-27 14:20 | disposition home or self-care (01) ==
LOC: HO.MRI 14:19
PROVIDERS: PCP Registered Nurse; Visit Provider Registered Nurse
DX: M54.50 Low back pain, unspecified (principal); M54.6 Pain in thoracic spine
CPT/HCPCS: 72146; 72148